=== PATIENT | female | born 1975 | race Caucasian/White ===

== ENCOUNTER 2018-03-09 16:09 | Emergency (ER) | payer BC, MEDICAID, SELFPAY ==
[2018-03-09 16:10] VITALS: BP 152/85; PULSE 56; RESP 16; TEMP 36.3; O2SAT 99; BMI 35.3
--- NOTE | 2018-03-09 16:23 | ED.VISSUMM ---
- ER Visit Summary Date of Service: 03/09/18 Chief Complaint: Left foot injury History of Present Illness: The patient is a 42 F who presents with continued pain to her left foot after stubbing her foot on her sulfa last week. Patient states she has shooting pain up her foot especially with dorsiflexion of her toes. She denies paresthesias. Physical Examination: Vital signs gross unremarkable. Patient sitting upright in bed no acute distress. Lower external examination reveals tenderness to palpation of the distal third and fourth metatarsals. No edema or deformity. Normal sensation and cap refill are noted. No overlying skin changes. She has full range of motion and no tenderness at the ankle. Test Results: Left foot x-rays reveal no acute bony abnormality. Emergency Department Course and Treatment: Test results discussed with patient and family at bedside. Patient's pain has increased over the past couple of days and I question whether her contusion has triggered tendinitis. She is already on Percocet chronically. She will be given a short course of steroids. Treatment Plan: [] Disposition: Discharge Impression: Left foot contusion This note was generated with [employer] dictation software. It may contain incorrect words, spelling, and punctuation that were not noted in review of the chart prior to signing ED Disposition - Plan for ED Patient: Chief Complaint: Lower Extremity Injury Referrals: [facility] Doctor,Out of [NON-STAFF] -
--- NOTE | 2018-03-09 16:25 | RAD_ITS ---
STUDY: X-RAY - LEFT FOOT CLINICAL: Female, 42 years old. Stopped 3rd through 5th toes. Prior surgery of 1st toe as a child. TECHNIQUE: 3 view(s) of the foot. COMPARISON: None. FINDINGS: Osteopenia. Minimal DJD interphalangeal joints. Moderate DJD 1st digit metatarsophalangeal joint with prominent hallux valgus and bunion. A small cerclage wires present within the proximal phalanx of the 1st digit from remote surgery. Old fracture with residual deformity proximal diaphysis of the 4th metatarsal. No visible acute fracture of the toes or metatarsals. Preserved arch. Next line minimal DJD intertarsal and tarsometatarsal articulations. Unremarkable ankle and subtalar joint. Achilles insertion enthesophyte and plantar calculus spur. RAD/Foot min 3 Views IMPRESSION: No radiographic evidence of acute injury. Electronically Signed: Will Verduzco MD at 16:52 EST Tel , Service support ,
--- NOTE | 2018-03-09 17:05 | ED.DEP ---
ED Disposition - Plan for ED Patient: Disposition: Home or Assisted Living Chief Complaint: Lower Extremity Injury Instructions: ED Contusion Foot, What Is Tendinitis of the Foot? Prescriptions: predniSONE tablet 60 mg PO DAILY #15 tablet Referrals: [facility] Doctor,Out of [NON-STAFF] - 1 Week if not improving
[2018-03-09] MEDS: Triamcinolone Acetonide 40 MG/ML Vial IM (17:17)
--- OUTSIDE RECORDS SUMMARY | 2018-05-12 04:34 | XMS RPT_ITS ---
:1975 Author Organization [place] Support Name Relationship Address Phone DOLLJENNIFER RUSSELL Unavailable [address] + [place] [address] TENZIN MCKAY Unavailable [address] + [place] [address] TENZIN MCKAY Unavailable Unavailable + TENZIN MCKAY Unavailable Unavailable + Tenzin Mckay Unavailable Unavailable + [facility] Unavailable Unavailable + TENZIN MCKAY Unavailable Unavailable + TENZIN MCKAY Unavailable Unavailable + TENZIN MCKAY Unavailable Unavailable + TENZIN MCKAY Unavailable Unavailable + TENZIN MCKAY Unavailable [address] + [place] [address] TENZIN MCKAY Unavailable [address] + [place] [address] TENZIN MCKAY Unavailable Unavailable + TENZIN MCKAY Unavailable Unavailable + TENZIN MCKAY Unavailable [address] + [place] [address] TENZIN MCKAY Unavailable Unavailable + TENZIN MCKAY Unavailable Unavailable + TENZIN MCKAY Unavailable [address] + [place] [address] TENZIN MCKAY Unavailable Unavailable + NELY, TENZIN Unavailable Unavailable + NELY, TENZIN Unavailable [address] + [place] [address] NELY, TENZIN Unavailable [address] + [place] [address] NELY, TENZIN Unavailable [address] + [place] [address] NELY, TEZNIN Unavailable [address] + [place] [address] NELY, TENZIN Unavailable Unavailable + NELY, TENZIN Unavailable Unavailable + NELY, TENZIN Unavailable Unavailable + NELY, TENZIN Unavailable Unavailable + NELY, TENZIN Unavailable Unavailable + NELY, TENZIN Unavailable Unavailable + NELY, TENZIN Unavailable [address] + [place] [address] NELY, TENZIN Unavailable Unavailable + NELY, TENZIN Unavailable [address] + [place] [address] NELY, TENZIN Unavailable Unavailable + NELY, TENZIN Unavailable Unavailable + Care Team Providers Name Role Phone Abbas, Mujjahid Attending Unavailable Unknown, Provider Attending Unavailable Abbas, Mujjahid Attending Unavailable Abbas, Mujjahid Admitting Unavailable Abbas, Mujjahid Attending Unavailable Abbas, Mujjahid Attending Unavailable Unknown, Provider Attending Unavailable Abbas, Mujjahid Attending Unavailable Abbas, Mujjahid Attending Unavailable Abbas, Mujjahid Attending Unavailable Abbas, Mujjahid Attending Unavailable Don, Dr. Misty Ross Attending Unavailable Abad, Dr. Cristofer Escobar Referring Unavailable Gianluca, Dr. Salma Moody Primary Care Unavailable Abad, Dr. Cristofer Ecsobar Attending Unavailable Gianluca, Dr. Salma Moody Referring Unavailable Gianluca, Dr. Salma Moody Primary Care Unavailable Gianluca, Dr. Salma Moody Attending Unavailable Gianluca, Dr. Salma Moody Primary Care Unavailable Abbas, Dr. Patel Admitting Unavailable Abbas, Dr. Patel Attending Unavailable *SELF, REFERRED Referring Unavailable Gianluca, Dr. Salma Moody Primary Care Unavailable Gianluca, Dr. Salma Moody Primary Care Unavailable Gianluca, Dr. Salma Moody Primary Care Unavailable Pataskala, Dr. Kaylee Cortez Attending Unavailable UNKNOWN, PCP Referring Unavailable Gianluca, Dr. Salma Moody Primary Care Unavailable Sleik, Dr. Misty Ross Admitting Unavailable Sleik, Dr. Misty Ross Attending Unavailable Gianluca, Dr. Salma Moody Referring Unavailable Gianluca, Dr. Salma Moody Primary Care Unavailable Eleni Delarosa Attending Unavailable Eleni Delarosa Referring Unavailable Gianluca, Dr. Salma Moody Primary Care Unavailable Bobby, Ms. Rubi Attending Unavailable ESEQUIEL MENESES (PA) Attending Unavailable ESEQUIEL MENESES (PA) Referring Unavailable PROVIDER, UNKNOWN Attending Unavailable Salma Hough Referring Unavailable Salma Hough Primary Care Unavailable ETTA CONTEH MD Admitting Unavailable ETTA CONTEH MD Attending Unavailable SALMA HOUGH MD Primary Care Unavailable ETTA CONTEH MD Attending Unavailable SALMA HOUGH MD Primary Care Unavailable ETTA CONTEH MD Attending Unavailable SALMA HOUGH MD Primary Care Unavailable Jordyn Asif Attending Unavailable Salma Hough Primary Care Unavailable PROBLEMS PROBLEMS DATE TYPE CONDITION / CODE ATTENDING STATUS SOURCE 01/22/2018 Admitting Varicose veins of Dr. Don Active [place] diagnosis bi low extrem w [facility] complications / Repository I83.893(ICD-10) 01/22/2018 Final diagnosis Varicose veins of Dr. Don Active [place] (discharge) right lower [facility] extremity with pain Repository / I83.811(ICD-10) 12/25/2017 Admitting Torticollis / Unknown Active [facility] Diagnosis M43.6(ICD-10) System Repository 12/25/2017 Admitting Paresthesia of skin Unknown Active [facility] Diagnosis / R20.2(ICD-10) System Repository 12/25/2017 Admitting Type 2 diabetes Unknown Active [facility] Diagnosis mellitus without System complications / Repository E11.9(ICD-10) 12/25/2017 Admitting Bariatric surgery Unknown Active [facility] Diagnosis status / System Z98.84(ICD-10) Repository 12/25/2017 Admitting Unspecified Unknown [facility] Diagnosis osteoarthritis, System unspecified site / Repository M19.90(ICD-10) 12/25/2017 Admitting Acquired absence of Unknown Active [facility] Diagnosis other specified System parts of digestive Repository tract / Z90.49(ICD-10) 12/25/2017 Admitting Personal history of Unknown Active [facility] Diagnosis nicotine dependence System / Z87.891(ICD-10) Repository 12/25/2017 Admitting Pain in right arm / Unknown Active [facility] Diagnosis M79.601(ICD-10) System Repository 12/10/[address] Abad Active [place] diagnosis varicose veins of [facility] unspecified lower Repository extremity / I83.90(ICD-10) 11/18/2017 Admitting Unspecified lump in GianlucaDr. rufina Active [place] diagnosis unspecified breast [facility] / N63.0(ICD-10) Repository 11/18/2017 [facility] [place] unspecified [facility] / N63.0(ICD-10) Repository 09/16/2017 Active Pain, unspecified / NA Active [place] R52(ICD-10) Clinic Other [place] Repository 08/14/2017 Final diagnosis Bariatric surgery Dr. Geraldo Active [place] (discharge) status / [facility] Z98.84(ICD-10) Repository 08/14/2017 Final diagnosis Gastro-esophageal Dr. Geraldo Active [place] (discharge) reflux disease [facility] without esophagitis Repository / K21.9(ICD-10) 05/08/2017 Final diagnosis Encounter for other Dr. Beba Active [place] (discharge) preprocedural [facility] examination / Repository Z01.818(ICD-10) 05/08/2017 Final diagnosis Type [address] Don Active [place] (discharge) mellitus with [facility] hyperglycemia / Repository E11.65(ICD-10) PROCEDURES PROCEDURES No Procedure Records FoundRESULTS RESULTS EMERGENCY DEPARTMENT Observed: 03/09/2018 Status: F Source: [place] SUMMARY 10:[address] [facility] REPOSITORY [facility] Medical Records Department [address] [place] [address] Emergency Department Summary 03/09/18 1623 MR#: [id number] Acct: [id number] Name: LEISA MCKAY Rep #: [id number] : 1975 42 From: Jordyn sAif MD PCP: Salma Hough MD Status: DEP ER - ER Visit Summary Date of Service: 03/09/18 Chief Complaint: Left foot injury History of Present Illness: The patient is a 42 F who presents with continued pain to her left foot after stubbing her foot on her sulfa last week. Patient states she has shooting pain up her foot especially with dorsiflexion of her toes. She denies paresthesias. Physical Examination: Vital signs gross unremarkable. Patient sitting upright in bed no acute distress. Lower external examination reveals tenderness to palpation of the distal third and fourth metatarsals. No edema or deformity. Normal sensation and cap refill are noted. No overlying skin changes. She has full range of motion and no tenderness at the ankle. Test Results: Left foot x-rays reveal no acute bony abnormality. Emergency Department Course and Treatment: Test results discussed with patient and family at bedside. Patient's pain has increased over the past couple of days and I question whether her contusion has triggered tendinitis. She is already on Percocet chronically. She will be given a short course of steroids. Treatment Plan: [] Disposition: Discharge Impression: Left foot contusion This note was generated with [employer] dictation software. It may contain incorrect words, spelling, and punctuation that were not noted in review of the chart prior to signing ED Disposition - Plan for ED Patient: Chief Complaint: Lower Extremity Injury Referrals: [facility] Doctor,Out of [NON-STAFF] - What to do if you have Problems For any increased pain, shortness of breath, bleeding, nausea or vomiting, chest pain, or any unexpected problems, contact your Primary Care Provider. Call [facility] ([phone]) or report to the closest Emergency Room. Call 911 if necessary. 03/09/18 3842 <Electronically signed by Jordyn Asif MD> Date Jordyn Asif MD Cosigner Signature (If Indicated): Date CC: Salma Hough MD DISCHARGE INSTRUCTION Observed: 03/09/2018 Status: F Source: [place] 5:[address] [facility] REPOSITORY [facility] Medical Records Department [address] [facility] [place] [address] Discharge Instruction 03/09/181704 MR#: [id number] Acct: [id number] Name: LEISA MCKAY Rep #: [id number] : 1975 42 From: Jordyn Asif MD PCP: Salma Hough MD Status: REG ER ED Disposition - Plan for ED Patient: Disposition: Home or Assisted Living Chief Complaint: Lower Extremity Injury Instructions: ED Contusion Foot, What Is Tendinitis of the Foot? Prescriptions: predniSONE tablet 60 mg PO DAILY #15 tablet Referrals: [facility] Doctor,Out of [NON-STAFF] - 1 Week if not improving What to do if you have Problems For any increased pain, shortness of breath, bleeding, nausea or vomiting, chest pain, or any unexpected problems, contact your Primary Care Provider. Call [facility] ([phone]) or report to the closest Emergency Room. Call 911 if necessary. 03/09/181704 <Electronically signed by Jordyn Asif MD> Date Jordyn Asif MD Cosigner Signature (If Indicated): Date CC: Salma Hough MD FOOT MIN 3 VIEWS Observed: 03/09/2018 Status: F Source: [place] 4:[address] [facility] REPOSITORY [facility] Imaging Services [address] [place] [address] Foot min 3 Views MR#: [id number] Acct: [id number] Name: LEIAS MCKAY Rep #: [id number] : 1975 F 42 From: Will Verduzco MD PCP: Salma Hough MD Status: REG ER Study: Foot min 3 Views Date of Exam: 03/09/18 Exam# [id number] Ordering Dr: Jordyn Asif MD STUDY: X-RAY - LEFT FOOT CLINICAL: Female, 42 years old. Stopped 3rd through 5th toes. Prior surgery of 1st toe as a child. TECHNIQUE: 3 view(s) of the foot. COMPARISON: None. FINDINGS: Osteopenia. Minimal DJD interphalangeal joints. Moderate DJD 1st digit metatarsophalangeal joint with prominent hallux valgus and bunion. A small cerclage wires present within the proximal phalanx of the 1st digit from remote surgery. Old fracture with residual deformity proximal diaphysis of the 4th metatarsal. No visible acute fracture of the toes or metatarsals. Preserved arch. Next line minimal DJD intertarsal and tarsometatarsal articulations. Unremarkable ankle and subtalar joint. Achilles insertion enthesophyte and plantar calculus spur. RAD/Foot min 3 Views IMPRESSION: No radiographic evidence of acute injury. Electronically Signed: Will Verduzco MD at 16:52 EST Tel , Service support , CC: Jordyn Asif MD; Salma Hough MD Baggage Inspector: Signed VASC LAB VENOUS Observed: 01/22/2018 Status: F Source: [facility]SUFFICIENCY/REFLUX ULT 1:28 PM [facility], [address] [place] [address], [address], [place] [address] and Vascular Lab Report Venous Insufficiency/Reflux Ultrasound Patient Name: LEISA MCKAY Reading Physician: [id number] Pamella Brown MD Study Date: 01/22/2018 Referring [id number] Cristofer Melgoza Physician: MRN/PID: [id number] PCP: Accession/Order#: [id number] CC Report to: Date of : 1975 Technologist: Pat Velasquez RVSilverio Gender: F Technologist 2: Admission Status: Outpatient Location Performed: [facility] Diagnosis/ICD: I83.811-Varicose veins of right lower extremity with pain Procedure/CPT: 40089 Venous reflux study [id number] [id number] CONCLUSIONS: Right Lower Venous Insufficiency: Right leg demonstrates no evidence of deep vein thombosis or deep or superficial venous insufficiency. The right GSV was not visualized in the mid and distal thigh. Anterior thigh varicosity noted however no reflux noted in the anterior branch. Imaging & Doppler Findings: Right Compress Thrombus SFJ Yes None Prox Thigh GSV Yes None Prox Calf GSV Yes None Mid Calf GSV Yes None Dist Calf GSV Yes None SSV Prox Yes None SSV Mid Yes None SSV Distal Yes None Right Compressible Thrombus CFV Yes None PFV Yes None FV Proximal Yes None FV Mid Yes None FV Distal Yes None Popliteal Yes None Peroneal Yes None PTV Yes None [id number] Pamella Brown MD Final OFFICE VISIT (VASCULAR Observed: 12/10/2017 Status: UNK Source: [facility]) 11:05 AM HOSPITALS REPOSITORY Chief Complaint The patient presents to the office today for an initial evaluation. data input clerk; varicose veins; She has a vein in her upper right thigh. Patient states that its painful when she walks. History of Present Illness This patient presents today as a new consult for evaluation of painful varicose vein right lower extremity. She is 42 years old. She had bariatric surgery and has lost about 80 pounds. She is a diabetic but that is improving. 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 Active Problems Abdominal pain (789.00) (R10.9) Acid reflux (530.81) (K21.9) Acquired deviated nasal septum (470) (J34.2) Acute bronchitis (466.0) (J20.9) Acute postoperative pain of abdomen (338.18,789.00) (G89.18,R10.9) Acute UTI (599.0) (N39.0) Anxiety (300.00) (F41.9) Bariatric surgery status (V45.86) (Z98.84) Breast lump (611.72) (N63.0) Carpal tunnel syndrome (354.0) (G56.00) Common migraine without aura (346.10) (G43.009) Diabetes mellitus type 2, uncontrolled (250.02) (E11.65) Epidermal inclusion cyst (706.2) (L72.0) Fatigue (780.79) (R53.83) GERD without esophagitis (530.81) (K21.9) H. pylori infection (041.86) (A04.8) Headache (784.0) (R51) Incisional hernia (553.21) (K43.2) Status post robotic assisted, laparoscopic repair of this incarcerated incisional hernia on 11/16/2015 at [facility]; satisfactory healing and postoperative course Supraumbilical, symptomatic, as described Iron deficiency anemia (280.9) (D50.9) Joint pain, knee (719.46) (M25.569) Knee osteoarthritis (715.36) (M17.10) Morbid obesity (278.01) (E66.01) Obstructive sleep apnea of adult (327.23) (G47.33) Pilonidal cyst (685.1) (L05.91) Postop check (V67.00) (Z09) Post-operative nausea and vomiting (787.01) (R11.2,Z98.890) Pre-op testing (V72.84) (Z01.818) Rapid weight loss (783.21) (R63.4) S/P laparoscopic sleeve gastrectomy (V45.86) (Z98.84) Sinusitis (473.9) (J32.9) Sleep apnea (780.57) (G47.30) Sprain of right knee (844.9) (S83.91XA) Traumatic arthritis of knee (716.16) (M12.569) Vaginitis (616.10) (N76.0) Varicose veins (454.9) (I83.90) Ventral hernia (553.20) (K43.9) Vitamin D insufficiency (268.9) (E55.9) Weight gain (783.1) (R63.5) Past Medical History History of gestational diabetes (V12.21) (Z86.32) History of morbid obesity (V13.89) (Z87.898) Personal history of arthritis (V13.4) (Z87.39) Surgical History History of Section x 2 History of Eye Surgery Results Strabismus History of Foot Repair age 12 History of Gastrectomy Sleeve Laparoscopic History of Knee Surgery right x 6 History of Nose Surgery History of Surgery fb face Family History Family history of Acute Myocardial Infarction (V17.3) Family history of Benign Essential Hypertension Family history of Type 2 Diabetes Mellitus Social History Former smoker (V15.82) (Z87.891) Quit 2005 (1 1/8cofk4xmezg) Living Situation: Supportive and safe Denied: History of Never smoker No alcohol use No drug use Non-smoker (V49.89) (Z78.9) Occupation Works in [employer] at [employer] for the past year usually works at 32-34 hours per week with a 9 hour shifts. Prior to [employer] and had worked at a [employer] for 6 months. 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 She worked for approximate 2 years for [employer] prior to having her children. 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 Denies any other workers consultation injuries or exposures at work graduated from high school in 1995. Patient works at [employer] in [place] [employer] and also [employer]. She denies smoking or alcohol use. She lives in [place]. She is 2 para 2 abortus 0. She has 3 children. She had twins. Allergies No Known Allergies Recorded By: Salma Hough; 02/28/2012 1:54:04 PM Current Meds Omeprazole 40 MG Oral Capsule Delayed Release; take 1 capsule by mouth once daily; Therapy: 84Lkz5034 to (Evaluate:25Dec2017) Requested for: 26Sep2017; Last Rx:26Sep2017 Ordered Rx By: Amanda Chow; Dispense: 30 Days ; #:30 Capsule; Refill: 2;For: Acid reflux, Morbid obesity; KIELY = N; Verified Transmission to [address]; Last Updated By: Maite Hernandez; 09/26/2017 9:57:07 AM Vitamin B-1 50 MG Oral Tablet; take 1 tablet 1x a day for 4 weeks; Therapy: 19Jun2017 to (Last Rx:19Jun2017) Requested for: 19Jun2017 Ordered Rx By: Amanda Chow; Dispense: 0 Days ; #:30 Tablet; Refill: 0;For: Bariatric surgery status; KEILY = N; Verified Transmission to [address] Oxycodone-Acetaminophen 5-325 MG/5ML SOLN; Therapy: 04Apr2017 to Recorded Dispense: 0 Days ; #: Sufficient ML; Refill: 0;For: Joint pain, knee, Knee osteoarthritis; KEILY = N; Record; Last Updated By: Dana Lugo; 04/04/2017 10:06:09 AM IMVU Mini w/Device Kit; USE DIRECTED TO TEST TWICE A DAY; Therapy: 15Dec2016 to Recorded Rx By: GIANLUCA; Dispense: 30 Days ; #:1 KIT; Refill: 0; KEILY = N; Record; Last Updated By: Salma Hough; 03/14/2017 10:47:06 AM Vitals Vital Signs Recorded: 10Dec2017 10:39AM Heart Rate63 Gcwyoucf641, LUE, Sitting Jdoheitfl69, LUE, Sitting Blood Pressure Cuff SizeLarge Height5 ft 3.5 in Nqrzlr477 lb BMI Ufbzcjnotm41.79 BSA Calculated1.99 O2 Ibmosolngt88 Physical Exam This patient is alert and oriented 3 no acute distress she is resting comfortably her head is normocephalic pupils are equal and reactive to light and accommodation neck is soft and supple without palpa ble lymph nodes heart is regular rate and rhythm lungs are clear abdomen is soft with positive bowel sounds is no pain on palpation. Upper and lower extremities have adequate range of motion with palpab le brachial radial femoral popliteal and pedal pulses. She does have a varicosity involving her right lower extremity starting from the proximal thigh area near the groin and going anterolaterally acros s the lateral part of the knee. Skin turgor is adequate psychologically she seems to be acting appropriately. Results/Data There are no new results to discuss Diagnoses/Problems Varicose veins (454.9) (I83.90) Orders Varicose veins Patient Treatment Education; Status:Complete - Retrospective Authorization; Done: 10Dec2017 Last Updated By:Jo Ann Reinoso; 12/10/2017 10:43:02 AM;Ordered; For:Varicose veins; Ordered By:Cristofer Melgoza; Provider Impressions This patient presents today as a new consult for evaluation of painful right lower extremity varicose vein. She states that the vein is consistently painful. She quit smoking in 2005. She also had baria tric surgery and has lost 80 pounds. She currently weighs 211 pounds. On physical exam she has palpable peripheral pulses. She has a varicosity running along the anterior lateral aspect of her right thi gh she has very mild varicosities of the left lower extremity. At this time I would like to order a venous duplex scan with reflux study and also she needs to wear her compression stockings that we are prescribing for her on a consistent basis. Also she needs to start exercising. We will see her back in 3 months. Thank you very much for allowing me take part in the care of your patient sincerely yours Dr. Cristofer Melgoza. Counseling The patient was counseled regarding instructions for management, risk factor reductions, prognosis, patient and family education, risks and benefits of treatment options and importance of compliance with treatment. End of Encounter Meds Omeprazole 40 MG Oral Capsule Delayed Release; take 1 capsule by mouth once daily; Therapy: 19Jun2017 to (Evaluate:25Dec2017) Requested for: 26Sep2017; Last Rx:26Sep2017 Ordered IMVU Mini w/Device Kit; USE DIRECTED TO TEST TWICE A DAY; Therapy: 15Dec2016 to Recorded Oxycodone-Acetaminophen 5-325 MG/5ML SOLN; Therapy: 32Alq5756 to Recorded Vitamin B-1 50 MG Oral Tablet; take 1 tablet 1x a day for 4 weeks; Therapy: 19Jun2017 to (Last Rx:19Jun2017) Requested for: 19Jun2017 Ordered Signatures Electronically signed by : Cristofer Melgoza DO; Dec 10 2017 11:05AM EST (Author) Reviewed by : Salma Hough MD; Dec 10 2017 5:31PM EST DIGITAL DIAG MAMM Observed: 11/18/2017 Status: F Source: [facility] WITH [facility] 11:02 [facility] REPOSITORY Patient Name: LEISA MCKAY STUDY: DIGITAL DIAG MAMM BILAT WITH MAR[facility]; BREAST ULTRASOUND; 11/18/2017 11:02 am ACCESSION NUMBER(S): [id number]; [id number] ORDERING CLINICIAN: SALMA HOUGH INDICATION: Signs/Symptoms: bilat breast lumps. COMPARISON: None. FINDINGS: MAMMOGRAPHY: 2D and tomosynthesis images were reviewed at 1 mm slice thickness. There are areas of scattered fibroglandular tissue. Metallic BBs were placed bilaterally in the lateral central aspect of both breasts. There is no underlying focal abnormality seen. No suspicious masses or calcifications are identified. ULTRASOUND: Targeted ultrasound of both breasts was performed. There is no focal abnormality seen in the area of palpable concern. IMPRESSION: No mammographic evidence of malignancy. No ultrasonic evidence of malignancy in the area of palpable concern bilaterally. Clinical follow-up is recommended. BI-RADS CATEGORY: Category: 1 - Negative. Recommendation: 1 Year Screening. For any future breast imaging appointments, please call [phone] ([phone]). Patient letter sent SNORMS Electronically signed by: DIANE GRAVES MD BREAST ULTRASOUND Observed: 11/18/2017 Status: F Source: [place] 11:02 [facility] REPOSITORY Patient Name: LEISA MCKAY STUDY: DIGITAL DIAG MAMM BILAT WITH [facility]; BREAST ULTRASOUND; 11/18/2017 11:02 am ACCESSION NUMBER(S): [id number]; [id number] ORDERING CLINICIAN: SALMA HOUGH INDICATION: Signs/Symptoms: bilat breast lumps. COMPARISON: None. FINDINGS: MAMMOGRAPHY: 2D and tomosynthesis images were reviewed at 1 mm slice thickness. There are areas of scattered fibroglandular tissue. Metallic BBs were placed bilaterally in the lateral central aspect of both breasts. There is no underlying focal abnormality seen. No suspicious masses or calcifications are identified. ULTRASOUND: Targeted ultrasound of both breasts was performed. There is no focal abnormality seen in the area of palpable concern. IMPRESSION: No mammographic evidence of malignancy. No ultrasonic evidence of malignancy in the area of palpable concern bilaterally. Clinical follow-up is recommended. BI-RADS CATEGORY: Category: 1 - Negative. Recommendation: 1 Year Screening. For any future breast imaging appointments, please call [phone] ([phone]). Patient letter sent SNORMS Electronically signed by: DIANE GRAVES MD OFFICE VISIT (FAMILY Observed: 11/17/2017 Status: UNK Source: [facility]) 11:13 AM HOSPITALS REPOSITORY Chief Complaint follow up anxiety and fatigue - discuss gastro medication possible lumps on breast - did not get bw done yet. History of Present Illness here for fu was to fu for anxiety meds but when called and checked on meds w bariatric surgeon they said it was to extended release for her sleeve an cannot take' has been off after 3 days and has been pt has been managing the stress w relaxation techniques has been watching sugar and has been doing ok w that has chronic pain and on percocet for knees per dr ugalde had a shot 2 weeks ago and has another scheduled in the other knee getting gel injections has struggled w pain increase bc more activity' ran for the first time in forever not far but now still knee pain few lumos breast needed check and no mammo in a while1 1 Amended By: Salma Hough; Nov 17 2017 11:11 AM EST Review of Systems Constitutional: no chills, no fever and no night sweats. Eyes: no blurred vision and no eyesight problems. ENT: no hearing loss, no nasal congestion, no nasal discharge, no hoarseness and no sore throat. Neck: no mass(es) and no swelling. Cardiovascular: no chest pain, no intermittent leg claudication, no lower extremity edema, no palpitations and no syncope. Respiratory: no cough, no shortness of breath during exertion, no shortness of breath at rest and no wheezing. Gastrointestinal: no abdominal pain, no diarrhea, no nausea and no vomiting. Integumentary: breast lump1 , but no new skin lesions and no rashes. 1 Amended By: Salma Hough; Nov 17 2017 11:12 AM EST Active Problems Abdominal pain (789.00) (R10.9) Acid reflux (530.81) (K21.9) Acquired deviated nasal septum (470) (J34.2) Acute bronchitis (466.0) (J20.9) Acute postoperative pain of abdomen (338.18,789.00) (G89.18,R10.9) Acute UTI (599.0) (N39.0) Anxiety (300.00) (F41.9) Bariatric surgery status (V45.86) (Z98.84) Carpal tunnel syndrome (354.0) (G56.00) Common migraine without aura (346.10) (G43.009) Diabetes mellitus type 2, uncontrolled (250.02) (E11.65) Epidermal inclusion cyst (706.2) (L72.0) Fatigue (780.79) (R53.83) GERD without esophagitis (530.81) (K21.9) H. pylori infection (041.86) (A04.8) Headache (784.0) (R51) Incisional hernia (553.21) (K43.2) Status post robotic assisted, laparoscopic repair of this incarcerated incisional hernia on 11/16/2015 at [facility]; satisfactory healing and postoperative course Supraumbilical, symptomatic, as described Iron deficiency anemia (280.9) (D50.9) Joint pain, knee (719.46) (M25.569) Knee osteoarthritis (715.36) (M17.10) Morbid obesity (278.01) (E66.01) Obstructive sleep apnea of adult (327.23) (G47.33) Pilonidal cyst (685.1) (L05.91) Postop check (V67.00) (Z09) Post-operative nausea and vomiting (787.01) (R11.2,Z98.890) Pre-op testing (V72.84) (Z01.818) Rapid weight loss (783.21) (R63.4) S/P laparoscopic sleeve gastrectomy (V45.86) (Z98.84) Sinusitis (473.9) (J32.9) Sleep apnea (780.57) (G47.30) Sprain of right knee (844.9) (S83.91XA) Traumatic arthritis of knee (716.16) (M12.569) Vaginitis (616.10) (N76.0) Varicose veins (454.9) (I83.90) Ventral hernia (553.20) (K43.9) Vitamin D insufficiency (268.9) (E55.9) Weight gain (783.1) (R63.5) Past Medical History History of gestational diabetes (V12.21) (Z86.32) History of morbid obesity (V13.89) (Z87.898) Personal history of arthritis (V13.4) (Z87.39) Surgical History History of Section x 2 History of Eye Surgery Results Strabismus History of Foot Repair age 12 History of Gastrectomy Sleeve Laparoscopic History of Knee Surgery right x 6 History of Nose Surgery History of Surgery fb face Family History Family history of Acute Myocardial Infarction (V17.3) Family history of Benign Essential Hypertension Family history of Type 2 Diabetes Mellitus Social History Living Situation: Supportive and safe Never smoker No alcohol use No drug use Non-smoker (V49.89) (Z78.9) Occupation Works in the [employer] at [employer] for the past year usually works at 32-34 hours per week with a 9 hour shifts. Prior to [employer] and had worked at a [employer] for 6 months. 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 She worked for approximate 2 years for [employer] prior to having her children. 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 Denies any other workers consultation injuries or exposures at work graduated from high school in 1995. 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 She denies smoking or alcohol use. She lives in [place]. She is 2 para 2 abortus 0. She has 3 children. She had twins. Allergies No Known Allergies Recorded By: Salma Hough; 02/28/2012 1:54:04 PM Current Meds Omeprazole 40 MG Oral Capsule Delayed Release; take 1 capsule by mouth once daily; Therapy: 19Jun2017 to (Evaluate:25Dec2017) Requested for: 41Iep6871; Last Rx:[id number] Ordered Rx By: Amanda Chow; Dispense: 30 Days ; #:30 Capsule; Refill: 2;For: Acid reflux, Morbid obesity; KEILY = N; Verified Transmission to [address] Last Updated By: [employer]; 09/26/2017 9:57:07 AM DULoxetine HCl - 30 MG Oral Capsule Delayed Release Particles; take 1 capsule by mouth once daily; Therapy: 66Zlk4267 to (Last Rx:[id number]) Requested for: 05Noy9213 Ordered Rx By: Salma Hough; Dispense: 0 Days ; #:30 Capsule Delayed Release Particles; Refill: 0;For: Anxiety; KEILY = N; Verified Transmission to [address] Last Updated By: [employer]; 10/08/2017 3:10:42 PM Vitamin B-1 50 MG Oral Tablet; take 1 tablet 1x a day for 4 weeks; Therapy: 65Vaa5188 to (Last Rx:19Jun2017) Requested for: 05Kdd9851 Ordered Rx By: Amanda Chow; Dispense: 0 Days ; #:30 Tablet; Refill: 0;For: Bariatric surgery status; KEILY = N; Verified Transmission to [address] Oxycodone-Acetaminophen 5-325 MG/5ML SOLN; Therapy: 25Aun9538 to Recorded Dispense: 0 Days ; #: Sufficient ML; Refill: 0;For: Joint pain, knee, Knee osteoarthritis; KEILY = N; Record; Last Updated By: Dana Lugo; 04/04/2017 10:06:09 AM Ondansetron 4 MG Oral Tablet Disintegrating; TAKE 4 MG Every 6 hours PRN; Therapy: 19Vom6390 to (Last Rx:43Kmi0425) Requested for: 26Ffo7913 Ordered Rx By: Amanda Chow; Dispense: 0 Days ; #:30 Tablet Disintegrating; Refill: 1;For: Post-operative nausea and vomiting; KEILY = N; Verified Transmission to [address] MetroNIDAZOLE 0.75 % Vaginal Gel; INSERT 1 APPLICATORFUL INTRAVAGINALLY AT BEDTIME NIGHTLY. FOR 7 DAYS; Therapy: 29Soo3759 to (Last Rx:[id number]) Requested for: 09Zpa7106 Ordered Rx By: Salma Hough; Dispense: 0 Days ; #:1 X 70 GM Tube; Refill: 0;For: Vaginitis; KEILY = N; Verified Transmission to [address]; Last Updated By: Maite Hernandez; 10/13/2017 9:25:26 PM OneTouch Ultra Mini w/Device Kit; USE DIRECTED TO TEST TWICE A DAY; Therapy: 15Dec2016 to Recorded Rx By: GIANLUCA; Dispense: 30 Days ; #:1 KIT; Refill: 0; KEILY = N; Record; Last Updated By: Salma Hough; 03/14/2017 10:47:06 AM Vitals Vital Signs Recorded: 17Nov2017 10:31AM Erweqxixmfh25.1 F Heart Rate78 Cbvfbjuq205 Fwlhyyjfb95 Height5 ft 3.5 in Nfvftl512 lb BMI Sechwzfyny96.66 BSA Calculated2.01 Physical Exam Constitutional: Alert and in no acute distress. Well developed, well nourished. Eyes: Normal external exam. Pupils were equal in size, round, reactive to light (PERRL) with normal accommodation and extraocular movements intact (EOMI). Ears, Nose, Mouth, and Throat: External inspection of ears and nose: Normal. Hearing: Normal. Nasal mucosa, septum, and turbinates: Normal. Lips, teeth, and gums: Normal. Oropharynx: Normal. Neck: No neck mass was observed. Supple. Thyroid not enlarged and there were no palpable thyroid nodules. Cardiovascular: Heart rate and rhythm were normal, normal S1 and S2, no gallops, no murmurs and no pericardial rub. Pedal pulses: Normal. No peripheral edema. Pulmonary: No respiratory distress. Clear bilateral breath sounds. Chest:1 Breasts: Abnormal. 1 . B nodularity1 . Abdomen: Soft nontender; no abdominal mass palpated. No organomegaly. Musculoskeletal: No joint swelling seen, normal movements of all extremities. Range of motion: Normal. Muscle strength/tone: Normal. Skin: Normal skin color and pigmentation, normal skin turgor, and no rash. Psychiatric: Judgment and insight: Intact. Mood and affect: Normal. Lymphatic: No cervical lymphadenopathy. 1 Amended By: Salma Hough; Nov 17 2017 11:12 AM EST Diagnoses/Problems Anxiety (300.00) (F41.9) Bariatric surgery status (V45.86) (Z98.84) Joint pain, knee (719.46) (M25.569) Diabetes mellitus type 2, uncontrolled (250.02) (E11.65) Breast lump (611.72) (N63.0)1 1 Amended By: Salma Hough; Nov 17 2017 11:12 AM EST Orders Anxiety Stop: DULoxetine HCl - 30 MG Oral Capsule Delayed Release Particles Rx By: Salma Hough; Dispense: 0 Days ; #:30 Capsule Delayed Release Particles; Refill: 0;For: Anxiety; KEILY = N; Sent To:[address] [facility] [address] Breast lump Mamm - Digital Diagnostic Mammogram Bilateral w/ Tomosynthesis; Status:Hold For - Scheduling; Requested for: Perform:[facility]; Due:50Njk7333;Ordered; For:Breast lump; Ordered By:Salma Hough Radiologist to Determine Optimal Study : Y What are the patient's signs and symptoms? : b breast lumps1 Mamm - Ultrasound of Breast; Status:Hold For - Scheduling; Requested for: Perform:[facility]; Due:61Qgj5708;Ordered; For:Breast lump; Ordered By:Salma Hough Radiologist to Determine Optimal Study : Y What are the patient's signs and symptoms? : b breast lumps1 Post-operative nausea and vomiting Stop: Ondansetron 4 MG Oral Tablet Disintegrating Rx By: Amanda Chow; Dispense: 0 Days ; #:30 Tablet Disintegrating; Refill: 1;For: Post-operative nausea and vomiting; KEILY = N; Sent To: [facility] Last Updated By: Salma Hough; 11/17/2017 11:07:35 AM1 Vaginitis Stop: MetroNIDAZOLE 0.75 % Vaginal Gel (MetroGel-Vaginal) Rx By: Salma Hough; Dispense: 0 Days ; #:1 X 70 GM Tube; Refill: 0;For: Vaginitis; KEILY = N; Sent To:[address] [facility] [address] 1 Amended By: Salma Hough; Nov 17 2017 11:12 AM EST Provider Impressions call w issues bariatric fu as scheduled getting bw soon fu w pain mngement and ortho sees nutrition w the bariatric clinic and goes to fu meetings going for bw soon End of Encounter Meds Omeprazole 40 MG Oral Capsule Delayed Release; take 1 capsule by mouth once daily; Therapy: 19Jun2017 to (Evaluate:25Dec2017) Requested for: 26Sep2017; Last Rx:[id number] Ordered Gruviuch Hers Mini w/Device Kit; USE DIRECTED TO TEST TWICE A DAY; Therapy: 15Dec2016 to Recorded Oxycodone-Acetaminophen 5-325 MG/5ML SOLN; Therapy: 00Lty9652 to Recorded Vitamin B-1 50 MG Oral Tablet; take 1 tablet 1x a day for 4 weeks; Therapy: 19Jun2017 to (Last Rx:19Jun2017) Requested for: 19Jun2017 Ordered Signatures Electronically signed by : Salma Hough MD; Nov 17 2017 11:13AM EST (Author) OFFICE VISIT (FAMILY Observed: 10/08/2017 Status: UNK Source: [facility]) 3:16 PM HOSPITALS REPOSITORY Chief Complaint follow up gastro surgery. History of Present Illness here for fu had bariatric surgery in june has lost a lot of weight then plateaued had bad heart burn and was given carafate and nexium but was not covered so doing the omeprazole 40 and the omeprazole 20 seems better now and is learning to manage w diet and watching intake started to note mass hair loss ijn August and now very thin type was thin before and had a bald spot at site of scar but now much worse has bad anxiety does not want to sit but moves around then knee hurts having dc vaginal and long menses for 5 yrs last yn care was in to [facility] before they moved 7 yrs ago and has not been back Review of Systems Constitutional: no chills, no fever and no night sweats. Eyes: no blurred vision and no eyesight problems. ENT: no hearing loss, no nasal congestion, no nasal discharge, no hoarseness and no sore throat. Neck: no mass(es) and no swelling. Cardiovascular: no chest pain, no intermittent leg claudication, no lower extremity edema, no palpitations and no syncope. Respiratory: no cough, no shortness of breath during exertion, no shortness of breath at rest and no wheezing. Gastrointestinal: no abdominal pain, no nausea and no vomiting. Musculoskeletal: limb pain, but no arthralgias, no back pain and no myalgias . vein right. Integumentary: no new skin lesions and no rashes. Active Problems Abdominal pain (789.00) (R10.9) Acid reflux (530.81) (K21.9) Acquired deviated nasal septum (470) (J34.2) Acute bronchitis (466.0) (J20.9) Acute postoperative pain of abdomen (338.18,789.00) (G89.18,R10.9) Acute UTI (599.0) (N39.0) Anxiety (300.00) (F41.9) Bariatric surgery status (V45.86) (Z98.84) Carpal tunnel syndrome (354.0) (G56.00) Common migraine without aura (346.10) (G43.009) Diabetes mellitus type 2, uncontrolled (250.02) (E11.65) Epidermal inclusion cyst (706.2) (L72.0) Fatigue (780.79) (R53.83) GERD without esophagitis (530.81) (K21.9) H. pylori infection (041.86) (A04.8) Headache (784.0) (R51) Incisional hernia (553.21) (K43.2) Status post robotic assisted, laparoscopic repair of this incarcerated incisional hernia on 11/16/2015 at [facility]; satisfactory healing and postoperative course Supraumbilical, symptomatic, as described Iron deficiency anemia (280.9) (D50.9) Joint pain, knee (719.46) (M25.569) Knee osteoarthritis (715.36) (M17.10) Morbid obesity (278.01) (E66.01) Obstructive sleep apnea of adult (327.23) (G47.33) Pilonidal cyst (685.1) (L05.91) Postop check (V67.00) (Z09) Post-operative nausea and vomiting (787.01) (R11.2,Z98.890) Pre-op testing (V72.84) (Z01.818) Rapid weight loss (783.21) (R63.4) S/P laparoscopic sleeve gastrectomy (V45.86) (Z98.84) Sinusitis (473.9) (J32.9) Sleep apnea (780.57) (G47.30) Sprain of right knee (844.9) (S83.91XA) Traumatic arthritis of knee (716.16) (M12.569) Ventral hernia (553.20) (K43.9) Vitamin D insufficiency (268.9) (E55.9) Weight gain (783.1) (R63.5) Past Medical History History of gestational diabetes (V12.21) (Z86.32) History of morbid obesity (V13.89) (Z87.898) Personal history of arthritis (V13.4) (Z87.39) Surgical History History of Section x 2 History of Eye Surgery Results Strabismus History of Foot Repair age 12 History of Gastrectomy Sleeve Laparoscopic History of Knee Surgery right x 6 History of Nose Surgery History of Surgery fb face Family History Family history of Acute Myocardial Infarction (V17.3) Family history of Benign Essential Hypertension Family history of Type 2 Diabetes Mellitus Social History Living Situation: Supportive and safe Never smoker No alcohol use No drug use Non-smoker (V49.89) (Z78.9) Occupation Works in the [employer] at [employer] for the past year usually works at 32-34 hours per week with a 9 hour shifts. Prior to [employer] and had worked at a [employer] for 6 months. 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 She worked for approximate 2 years for [employer] prior to having her children. 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 Denies any other workers consultation injuries or exposures at work graduated from high school in 1995. 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 She denies smoking or alcohol use. She lives in [place]. She is 2 para 2 abortus 0. She has 3 children. She had twins. Allergies No Known Allergies Recorded By: Salma Hough; 02/28/2012 1:54:04 PM Current Meds Omeprazole 40 MG Oral Capsule Delayed Release; take 1 capsule by mouth once daily; Therapy: 33Aiv7946 to (Evaluate:25Dec2017) Requested for: 26Sep2017; Last Rx:26Sep2017 Ordered Rx By: Amanda Chow; Dispense: 30 Days ; #:30 Capsule; Refill: 2;For: Acid reflux, Morbid obesity; KEILY = N; Verified Transmission to [address]; Last Updated By: Maite Hernandez; 09/26/2017 9:57:07 AM Lidocaine 5 % External Patch; APPLY 1 PATCH TO THE AFFECTED AREA AND LEAVE IN PLACE FOR 12 HOURS, THEN REMOVE AND LEAVE OFF FOR 12 HOURS; Therapy: 19Jun2017 to (Evaluate:24Jun2017) Requested for: 19Jun2017; Last Rx:19Jun2017 Ordered Rx By: Amanda Chow; Dispense: 5 Days ; #:5 Patch; Refill: 0;For: Acute postoperative pain of abdomen; KEILY = N; Verified Transmission to [address] Vitamin B-1 50 MG Oral Tablet; take 1 tablet 1x a day for 4 weeks; Therapy: 19Jun2017 to (Last Rx:19Jun2017) Requested for: 19Jun2017 Ordered Rx By: Amanda Chow; Dispense: 0 Days ; #:30 Tablet; Refill: 0;For: Bariatric surgery status; KEILY = N; Verified Transmission to [address] Carafate 1 GM/10ML Oral Suspension; TAKE 1 GM 4 times daily 4 TIMES DAILY, BEFORE MEALS AND AT BEDTIME; Therapy: 14Aug2017 to (Evaluate:24Nvt3362) Requested for: 14Aug2017; Last Rx:14Aug2017 Ordered Rx By: Amanda Chow; Dispense: 7 Days ; #:112 ML; Refill: 1;For: Bariatric surgery status, Post-operative nausea and vomiting, S/P laparoscopic sleeve gastrectomy; KEILY = N; Verified Transmission to [address] Dexilant 30 MG Oral Capsule Delayed Release; Take 1 tablet twice daily; Therapy: 14Aug2017 to (Evaluate:09Suq9206) Requested for: 14Aug2017; Last Rx:14Aug2017 Ordered Rx By: Amanda Chow; Dispense: 30 Days ; #:60 Capsule Delayed Release; Refill: 1;For: Bariatric surgery status, Post-operative nausea and vomiting, S/P laparoscopic sleeve gastrectomy; KEILY = N; Verified Transmission to [address] Oxycodone-Acetaminophen 5-325 MG/5ML SOLN; Therapy: 40Aug1142 to Recorded Dispense: 0 Days ; #: Sufficient ML; Refill: 0;For: Joint pain, knee, Knee osteoarthritis; KEILY = N; Record; Last Updated By: Dana Lugo; 04/04/2017 10:06:09 AM Ondansetron 4 MG Oral Tablet Disintegrating; TAKE 4 MG Every 6 hours PRN; Therapy: 28Mik3429 to (Last Rx:19Jun2017) Requested for: 19Jun2017 Ordered Rx By: Amanda Chow; Dispense: 0 Days ; #:30 Tablet Disintegrating; Refill: 1;For: Post-operative nausea and vomiting; KEILY = N; Verified Transmission to [address] Vitamin D (Ergocalciferol) 96430 UNIT Oral Capsule; take 1 capsule by mouth every week; Therapy: 19May2017 to (Evaluate:21Nov2017) Requested for: 19Sep2017; Last Rx:19Sep2017 Ordered Rx By: Amanda Chow; Dispense: 21 Days ; #:5 Capsule; Refill: 2;For: Vitamin D insufficiency; KEILY = N; Verified Transmission to [address]; Last Updated By: Maite Hernandez; 10/08/2017 3:09:29 PM IMVU Mini w/Device Kit; USE DIRECTED TO TEST TWICE A DAY; Therapy: 15Dec2016 to Recorded Rx By: GIANLUCA; Dispense: 30 Days ; #:1 KIT; Refill: 0; KEILY = N; Record; Last Updated By: Salma Hough; 03/14/2017 10:47:06 AM Vitals Vital Signs Recorded: 08Oct2017 02:17PM Eemkzfhtyyg80.4 F Heart Rate81 Zprgabmz774 Qsgnddvlz45 Mbfete282 lb BMI Mqsalacasv06.01 BSA Calculated2.02 Physical Exam Constitutional: Alert and in no acute distress. Well developed, well nourished. Eyes: Normal external exam. Pupils were equal in size, round, reactive to light (PERRL) with normal accommodation and extraocular movements intact (EOMI). Ears, Nose, Mouth, and Throat: External inspection of ears and nose: Normal. Hearing: Normal. Nasal mucosa, septum, and turbinates: Normal. Lips, teeth, and gums: Normal. Oropharynx: Normal. Neck: No neck mass was observed. Supple. Thyroid not enlarged and there were no palpable thyroid nodules. Cardiovascular: Heart rate and rhythm were normal, normal S1 and S2, no gallops, no murmurs and no pericardial rub. Pedal pulses: Normal. No peripheral edema. Pulmonary: No respiratory distress. Clear bilateral breath sounds. Abdomen: Soft nontender; no abdominal mass palpated. No organomegaly. Musculoskeletal: No joint swelling seen, normal movements of all extremities. Range of motion: Normal. Muscle strength/tone: Normal. Skin: Normal skin color and pigmentation, normal skin turgor, and no rash. Psychiatric: Judgment and insight: Intact. Mood and affect: Normal. Lymphatic: No cervical lymphadenopathy. Diagnoses/Problems Anxiety (300.00) (F41.9) Fatigue (780.79) (R53.83) Varicose veins (454.9) (I83.90) Vaginitis (616.10) (N76.0)1 1 Amended By: Salma Hough; Oct 08 2017 3:16 PM EST Orders Acute postoperative pain of abdomen Stop: Lidocaine 5 % External Patch Rx By: Amanda Chow; Dispense: 5 Days ; #:5 Patch; Refill: 0;For: Acute postoperative pain of abdomen; KEILY = N; Sent To: [facility] Last Updated By: Salma Hough; 10/08/2017 3:09:29 PM Anxiety Start: DULoxetine HCl - 30 MG Oral Capsule Delayed Release Particles; take 1 capsule by mouth once daily Rx By: Salma Hough; Dispense: 0 Days ; #:30 Capsule Delayed Release Particles; Refill: 0;For: Anxiety; KEILY = N; Verified Transmission to [facility]; Last Updated By: Maite Hernandez; 10/08/2017 3:10:42 PM1 Bariatric surgery status, Post-operative nausea and vomiting, S/P laparoscopic sleeve gastrectomy Stop: Dexilant 30 MG Oral Capsule Delayed Release Rx By: Amanda Chow; Dispense: 30 Days ; #:60 Capsule Delayed Release; Refill: 1;For: Bariatric surgery status, Post-operative nausea and vomiting, S/P laparoscopic sleeve gastrectomy; KEILY = N; Sent To: [facility] [place] [address]; Last Updated By: Salma Hough; 10/08/2017 3:09:30 PM Fatigue TSH - Thyroid Stimulating Hormone, Serum; Source:Blood (D); Status:Active; Requested for:08Oct2017; Perform:Lab Services - Lab To Draw (Blood Test); Due:06Jan2018;Ordered; For:Fatigue; Ordered By:Salma Hough Varicose veins Vascular Surgery Referral Evaluation and Treatment Evaluate AND Treat Status: Hold For - Scheduling Requested for: 08Oct2017 Ordered;For: Varicose veins; Ordered By: Salma Hough Performed: Due: 06Jan2018 Vitamin D insufficiency Stop: Vitamin D (Ergocalciferol) 80478 UNIT Oral Capsule Rx By: Amanda Chow; Dispense: 21 Days ; #:5 Capsule; Refill: 2;For: Vitamin D insufficiency; KEILY = N; Sent To: [facility]; Last Updated By: Salma Hough; 10/08/2017 3:09:29 PM 1 Amended By: Salma Hough; Oct 08 2017 3:16 PM EST Provider Impressions call w issues see orders above consider derm referral fi 4 weeks re meds 1 vascular referral for right leg pain and varicosity1 BD probe will treat when done2 1 Amended By: Salma Hough; Oct 08 2017 3:12 PM EST 2 Amended By: Salma Hough; Oct 08 2017 3:16 PM EST End of Encounter Meds DULoxetine HCl - 30 MG Oral Capsule Delayed Release Particles; take 1 capsule by mouth once daily; Therapy: 61Xgy1138 to (Last Rx:08Oct2017) Ordered Omeprazole 40 MG Oral Capsule Delayed Release; take 1 capsule by mouth once daily; Therapy: 19Jun2017 to (Evaluate:25Dec2017) Requested for: 73Xdp3324; Last Rx:09Kkg9912 Ordered Ondansetron 4 MG Oral Tablet Disintegrating; TAKE 4 MG Every 6 hours PRN; Therapy: 74Vic8053 to (Last Rx:19Jun2017) Requested for: 19Jun2017 Ordered SyndiantTouch Ultra Mini w/Device Kit; USE DIRECTED TO TEST TWICE A DAY; Therapy: 97Bpa7206 to Recorded Oxycodone-Acetaminophen 5-325 MG/5ML SOLN; Therapy: 42Ple1085 to Recorded Vitamin B-1 50 MG Oral Tablet; take 1 tablet 1x a day for 4 weeks; Therapy: 80Rlh0208 to (Last Rx:19Jun2017) Requested for: 10Qop0406 Ordered Signatures Electronically signed by : Salma Hough MD; Oct 08 2017 3:12PM EST (Author) BARIATRIC SURGERY - Observed: 09/25/2017 Status: UNK Source: [facility] FOLLOW-UP 6:58 AM HOSPITALS REPOSITORY No report was sent PROGRESS Observed: 09/18/2017 Status: COMPLETED Source: [place] 2:17 PM [facility] [place] REPOSITORY HNO ID: [id number] Author: Esequiel Meneses ([place]) Service: (none) Author Type: Physician Social Service Manager Type: Progress Notes Filed: 09/18/2017 3:10 PM Note Text: CONSULT ORTHOPAEDIC: KNEE PRIMARY CARE PHYSICIAN: Salma Hough MD REFERRING PROVIDER: SELF PROCEDURE- JOINT INJECTION Joint Sites: knee She has had previous injections in the past. On exam, the joint is cool to touch without sign of infection. Flexion is limited and is uncomfortable. Crepitation is present with ROM. The proposed risks versus benefits of local anesthetic and steroid injection were discussed in detail. The patient verbalizes understanding and elects to proceed with the injection. The procedure was verified with the patient, including the correct injection site, and confirmation with both the patient and program support assistant. Under sterile technique following verbal consent the patient underwent a left knee injection with 2cc of 6 mg/ml Celestone with 3 cc 1% Lidocaine and tolerated the procedure well without complications. The injection was performed through a superior-lateral portal to the knee without incident. The patient tolerated the injection well. Verbal instructions on post-injection care were given. Esequiel Meneses PA-C ASSESSMENT AND PLAN Impression: Left Knee Severe Degenerative Osteoarthritis, Primary and Right Knee Severe Degenerative Osteoarthritis, Primary After discussion with Leisa Mckay, and her current situation 3 months S/P gastric sleeve, losing weight along with her young age place her at increased risk for infection and failure. She has opted for continued non-operative management of injection(s) and bracing. We will try a cortisone injection on the left and an unoader brace on the right. was chosen. Ade is unable to take PO NSAIDs due to being S/P gastric sleeve The patient currently has had six months of unsuccessful non-operative treatment as outlined in the HPI below and progressive symptoms. Progressive Symptoms Include: Pain impacting sleep or causing fatigue Pain impacting work Pain worsened by weight bearing Pain effecting living situation Pain limiting ability to stay fit and healthy. The patient has been ordered: No orders placed today. CONSULTS: Patient does not require consults for optimization at this time. There is no problem list on file for this patient. SUBJECTIVE CHIEF COMPLAINT: Knee Pain HPI: Leisa Mckay is a 41 year old female here for evaluation and management of bilateral knee pain, right > left. 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 The problem began limiting activities 3+ years ago. Currently the pain in the joint is rated at 5-7 out of 10 with minimal activity. The pain is constant and is located along the outside aspect. The pain is described as crushing, throbbing and popping. Relieving factors include rest and repositioning. There is no specific incident that brought about this pain. She has no additional complaints. FUNCTIONAL STATUS: Have sexual relations (5.25 METs) Preoperative Ambulatory Status: Impaired Community Distances Number of Entry Steps: 3 Bedroom Location: Second floor Bathroom Location: First floor Caregiver Assistance: Consistent/Live-In (5-7 days/wk) Home Location: Up to 150 miles PREVIOUS TREATMENTS: Attempted Weight Loss Medical Treatments: Intolerant of NSAIDS, Steroid Injections Left Knee, Steroid Injections Right Knee, Viscosupplementation Left Knee, Viscosupplementation Right Knee Physical Therapy: PT Three Months or Greater Previous Surgery: gastric sleeve and has lost ~ 70 pounds REVIEW OF SYSTEMS: PAIN ASSESSMENT: See HPI. MUSCULOSKELETAL: See HPI. Surgical Risk Factors: obesity PAST MEDICAL HISTORY Diagnosis Date - Arthritis PAST SURGICAL HISTORY Procedure Laterality Date - CHOLECYSTECTOMY HX - ORTHOPEDICS SURGERY HX No family history on file. Social History Marital status: Spouse name: Years of education: Number of children: Social History Main Topics Smoking status: Former Smoker Packs/day: 0.00 Years: 0.00 Smokeless tobacco: Never Used Alcohol use: No Drug use: No ALLERGIES: Patient has no known allergies. MEDICATIONS: oxyCODONE-acetaminophen (PERCOCET) 5-325 mg tablet Take 1 tablet by mouth q 12 HR. ferrous sulfate 325 mg (65 mg iron) tablet ferrous sulfate 325 mg (65 mg iron) tablet Omeprazole 40 mg capsule VITAMIN B-1 50 mg tablet take 1 tablet by mouth ONCE A DAY FOR 4 WEEKS ergocalciferol, vitamin D2, (DRISDOL) 50,000 unit capsule Vitamin D2 50,000 unit capsule pseudoephedrine (SUDAFED) 30 mg tablet Take 1 tablet by mouth every 6 hours as needed. ibuprofen 800 mg tablet Take 800 mg by mouth three times daily. PHYSICAL EXAM: BP 116/56 Pulse (!) 54 Ht 162.6 cm (5' 4) Wt 100.8 kg (222 lb 1.9 oz) LMP 09/04/2017 BMI 38.13 kg/m? All other systems deferred. GENERAL: Appears healthy, well-nourished, no deformities. HABITUS: Obese UPPER EXTREMITIES: No restriction of function that would interfere with the use of ambulatory aids GAIT: Antalgic to the right KNEE EXAM: Left: Alignment: Valgus deformity, Correctable Range of motion is 0 degrees in extension and 110 degrees of flexion. Extension La degrees Pain with ROM: Yes Effusion: Slight Tender to the palpation of Lateral joint line Pain with patellar compression: No Stability: Anterior/Posterior stable, patient has mild laxity and slight joint space opening LATERAL with varus stress. Hip Exam: flexion to 100+ degrees, full extension, internal/external rotation adequate and no pain with log roll Neurovascular Status: Sensation Intact, Moves foot and ankle up AND down, Moves toes up and down and 2+ dorsalis pedis Right: Alignment: Valgus deformity, Partially Correctable Range of motion is 20 degrees in extension and 80 degrees of flexion. Extension La-20 degrees Pain with ROM: Yes Effusion: Mild Tender to the palpation of Patellar tendon, Medial joint line and Lateral joint line Pain with patellar compression: Yes Stability: Anterior/Posterior stable, patient has mild laxity and slight joint space opening LATERAL with varus stress. Hip Exam: flexion to 100+ degrees, full extension, internal/external rotation adequate and no pain with log roll Neurovascular Status: Sensation Intact, Moves foot and ankle up AND down, Moves toes up and down and 2+ dorsalis pedis DATA: Diagnostic tests reviewed for today's visit: Right knee X-Ray: Lateral joint space noted to have severe degenerative changes and Patellofemoral joint noted to have moderate degenerative changes Left knee X-Ray: Lateral joint space noted to have severe degenerative changes The following conditions were addressed during the office visit today: Obesity - Weight management strategies SIGNATURE: Esequiel Meneses PA-C PATIENT NAME: Leisa Mckay DATE: September 18, 2017 TIME: 2:17 PM CNOV Observed: 09/18/2017 Status: COMPLETED Source: [facility] 2:00 PM [facility] REPOSITORY Office Visit (ORMDNA) LEISA MCKAY ([id number]) 1975 F Date Time Provider Department 09/18/17 2:00 PM ESEQUIEL MENESES) JESUS During your visit today, we recorded the following information about you: Pulse Blood pressure Weight Height 54/minute 116/56 100.8 kg 1.626 m Last Period 09/04/17 Tamara Acevedo Ma 09/18/2017 2:07 PM Signed Patient presents with: Bilateral Knee Pain Esequiel Meneses PA-C 09/18/2017 3:10 PM Signed CONSULT ORTHOPAEDIC: KNEE PRIMARY CARE PHYSICIAN: Salma Hough MD REFERRING PROVIDER: SELF PROCEDURE- JOINT INJECTION Joint Sites: knee She has had previous injections in the past. On exam, the joint is cool to touch without sign of infection. Flexion is limited and is uncomfortable. Crepitation is present with ROM. The proposed risks versus benefits of local anesthetic and steroid injection were discussed in detail. The patient verbalizes understanding and elects to proceed with the injection. The procedure was verified with the patient, including the correct injection site, and confirmation with both the patient and program support assistant. Under sterile technique following verbal consent the patient underwent a left knee injection with 2cc of 6 mg/ml Celestone with 3 cc 1% Lidocaine and tolerated the procedure well without complications. The injection was performed through a superior-lateral portal to the knee without incident. The patient tolerated the injection well. Verbal instructions on post-injection care were given. Esequiel Meneses PA-C ASSESSMENT AND PLAN Impression: Left Knee Severe Degenerative Osteoarthritis, Primary and Right Knee Severe Degenerative Osteoarthritis, Primary After discussion with Leisa Mckay, and her current situation 3 months S/P gastric sleeve, losing weight along with her young age place her at increased risk for infection and failure. She has opted for continued non-operative management of injection(s) and bracing. We will try a cortisone injection on the left and an unoader brace on the right. was chosen. Ade is unable to take PO NSAIDs due to being S/P gastric sleeve The patient currently has had six months of unsuccessful non-operative treatment as outlined in the HPI below and progressive symptoms. Progressive Symptoms Include: Pain impacting sleep or causing fatigue Pain impacting work Pain worsened by weight bearing Pain effecting living situation Pain limiting ability to stay fit and healthy. The patient has been ordered: No orders placed today. CONSULTS: Patient does not require consults for optimization at this time. There is no problem list on file for this patient. SUBJECTIVE CHIEF COMPLAINT: Knee Pain HPI: Leisa Mckay is a 41 year old female here for evaluation and management of bilateral knee pain, right > left. 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 The problem began limiting activities 3+ years ago. Currently the pain in the joint is rated at 5-7 out of 10 with minimal activity. The pain is constant and is located along the outside aspect. The pain is described as crushing, throbbing and popping. Relieving factors include rest and repositioning. There is no specific incident that brought about this pain. She has no additional complaints. FUNCTIONAL STATUS: Have sexual relations (5.25 METs) Preoperative Ambulatory Status: Impaired Community Distances Number of Entry Steps: 3 Bedroom Location: Second floor Bathroom Location: First floor Caregiver Assistance: Consistent/Live-In (5-7 days/wk) Home Location: Up to 150 miles PREVIOUS TREATMENTS: Attempted Weight Loss Medical Treatments: Intolerant of NSAIDS, Steroid Injections Left Knee, Steroid Injections Right Knee, Viscosupplementation Left Knee, Viscosupplementation Right Knee Physical Therapy: PT Three Months or Greater Previous Surgery: gastric sleeve and has lost ~ 70 pounds REVIEW OF SYSTEMS: PAIN ASSESSMENT: See HPI. MUSCULOSKELETAL: See HPI. Surgical Risk Factors: obesity PAST MEDICAL HISTORY Diagnosis Date - Arthritis PAST SURGICAL HISTORY Procedure Laterality Date - CHOLECYSTECTOMY HX - ORTHOPEDICS SURGERY HX No family history on file. Social History Marital status: Spouse name: Years of education: Number of children: Social History Main Topics Smoking status: Former Smoker Packs/day: 0.00 Years: 0.00 Smokeless tobacco: Never Used Alcohol use: No Drug use: No ALLERGIES: Patient has no known allergies. MEDICATIONS: oxyCODONE-acetaminophen (PERCOCET) 5-325 mg tablet Take 1 tablet by mouth q 12 HR. ferrous sulfate 325 mg (65 mg iron) tablet ferrous sulfate 325 mg (65 mg iron) tablet Omeprazole 40 mg capsule VITAMIN B-1 50 mg tablet take 1 tablet by mouth ONCE A DAY FOR 4 WEEKS ergocalciferol, vitamin D2, (DRISDOL) 50,000 unit capsule Vitamin D2 50,000 unit capsule pseudoephedrine (SUDAFED) 30 mg tablet Take 1 tablet by mouth every 6 hours as needed. ibuprofen 800 mg tablet Take 800 mg by mouth three times daily. PHYSICAL EXAM: BP 116/56 Pulse (!) 54 Ht 162.6 cm (5' 4) Wt 100.8 kg (222 lb 1.9 oz) LMP 09/04/2017 BMI 38.13 kg/m? All other systems deferred. GENERAL: Appears healthy, well-nourished, no deformities. HABITUS: Obese UPPER EXTREMITIES: No restriction of function that would interfere with the use of ambulatory aids GAIT: Antalgic to the right KNEE EXAM: Left: Alignment: Valgus deformity, Correctable Range of motion is 0 degrees in extension and 110 degrees of flexion. Extension La degrees Pain with ROM: Yes Effusion: Slight Tender to the palpation of Lateral joint line Pain with patellar compression: No Stability: Anterior/Posterior stable, patient has mild laxity and slight joint space opening LATERAL with varus stress. Hip Exam: flexion to 100+ degrees, full extension, internal/external rotation adequate and no pain with log roll Neurovascular Status: Sensation Intact, Moves foot and ankle up AND down, Moves toes up and down and 2+ dorsalis pedis Right: Alignment: Valgus deformity, Partially Correctable Range of motion is 20 degrees in extension and 80 degrees of flexion. Extension La-20 degrees Pain with ROM: Yes Effusion: Mild Tender to the palpation of Patellar tendon, Medial joint line and Lateral joint line Pain with patellar compression: Yes Stability: Anterior/Posterior stable, patient has mild laxity and slight joint space opening LATERAL with varus stress. Hip Exam: flexion to 100+ degrees, full extension, internal/external rotation adequate and no pain with log roll Neurovascular Status: Sensation Intact, Moves foot and ankle up AND down, Moves toes up and down and 2+ dorsalis pedis DATA: Diagnostic tests reviewed for today's visit: Right knee X-Ray: Lateral joint space noted to have severe degenerative changes and Patellofemoral joint noted to have moderate degenerative changes Left knee X-Ray: Lateral joint space noted to have severe degenerative changes The following conditions were addressed during the office visit today: Obesity - Weight management strategies SIGNATURE: Esequiel Meneses PA-C PATIENT NAME: Leisa Mckay DATE: September 18, 2017 TIME: 2:17 PM Referring Provider: SELF [[id number]] Allergies As of Date: 09/18/2017 (No Known Allergies) Date Reviewed: 09/18/2017 Reviewed by: Esequiel Meneses (Pa) - Fully Assessed Reason for Visit: Bilateral Knee Pain [1210] Primary Visit Diagnosis:Primary osteoarthritis of right knee [M17.11] Other Visit Diagnosis:Primary osteoarthritis of left knee [M17.12] Order(s):OA PATIENT READY BRACE [[id number]] Order #: [id number] [] betamethasone acetate-betamethasone sodium phosphate 2 mg, lidocaine (PF) 10 mg/mL (1 %) 30 mgDisp: Rfl: Prescriptions as of 09/18/2017 Sig: OXYCODONE-ACETAMINOPHEN 5 MG-* Take 1 tablet by mouth q 12 H* FERROUS SULFATE 325 MG (65 MG* ferrous sulfate 325 mg (65 mg* OMEPRAZOLE 40 MG CAPSULE,PADMA* VITAMIN B-1 50 MG TABLET take 1 tablet by mouth ONCE A* ERGOCALCIFEROL (VITAMIN D2) 5* Vitamin D2 50,000 unit capsule PSEUDOEPHEDRINE 30 MG TABLET Take 1 tablet by mouth every * Patient not taking: Reported on 09/18/2017 IBUPROFEN 800 MG TABLET Take 800 mg by mouth three ti* Problem List As Of Date: 09/18/2017 (None) Visit Notes: >> Tamara Acevedo Kanwal Carmen Sep 18, 2017 2:07 PM Status: Signed Patient presents with: Bilateral Knee Pain Prescriptions ordered this encounter Disp Refills Start End CAM IMAN INJECTION BUILDER 09/18/2017 09/18/2017 Class: Suppress Questions Route: IAtc Follow-up and Disposition History Recorded Encounter Status:Closed by ESEQUIEL MENESES PA-C on 09/18/17 PROGRESS Observed: 09/16/2017 Status: COMPLETED Source: [facility] 1:29 PM [facility] OTHER [facility] REPOSITORY HNO ID: [id number] Author: Amee (Ct) RONNELL Porter Service: (none) Author Type: Clinical Access Analyst Type: Progress Notes Filed: 09/16/2017 1:29 PM Note Text: NAME:Leisa Mckay DATE: September 16, 2017 CCF#: [id number] Lower Extremity X-Ray(s): Knee, AP / Lat / Merchant Bilateral and Wt. Bearing COMPLETED TECH ID SIGN: RITIKA GARCIA XR KNEE 3V AP/LAT/TEDDY Observed: 09/16/2017 Status: F Source: [facility] 1:22 PM CLINIC OTHER CAMPUS REPOSITORY * * *Final Report* * * DATE OF EXAM: Sep 16 2017 1:22PM CARMEN [id number] - XR KNEE 3V AP/LAT/TEDDY BAUDILIO / PROCEDURE REASON: [id number], unspecified * * * * Physician Interpretation * * * * EXAMINATION: XR KNEE 3V AP/LAT/TEDDY BAUDILIO CLINICAL HISTORY: KNEE PAIN Pain, unspecified Technique: XR KNEE 3V AP/LAT/TEDDY BAUDILIO -- BILATERAL knees with 3 EACH views on 4 images Comparison: 07/08/2014 RESULT: Advanced bilateral lateral knee osteoarthritis with [id number] articulation and subchondral sclerosis. Bilateral valgus alignment. No fracture or dislocation. Tricompartment marginal osteophytes. No knee effusion. IMPRESSION: Advanced bilateral lateral compartment osteoarthritis, progressed since prior exam. Baggage Inspector: MARILYN Transcribe Date/Time: Sep 16 2017 5:49P Dictated by : ALFREDO TAPIA MD This examination was interpreted and the report reviewed and electronically signed by: ALFREDO TAPIA MD on Sep 16 2017 5:51PM EST [id number] BARIATRIC SURGERY - Observed: 08/14/2017 Status: UNK [facility]: [facility] 2:27 PM [facility] RE[facility] Chief Complaint The patient is having the following problems: severe heart burn it comes up in her mouth /fruits are not good for her. The patient is being seen today for a 6 week post-op visit. Type of surgery: Sleeve Gastrectomy. surgery date: 07/02/17 6 weeks History of Present Illness This is the patient's 6 week post op visit. Weight: Inital Weight: 285 lbs Last Visit Weight: 243.2 lbs Current Weight: 233 lbs Total Weight Lost: 52 lbs. Food: Does not drink soda Breakfast: protein shake Eating problems: none except waking up with heart hurn in her mouth Lunch: canned hicken and 1/2 protein shake Dinner: mashed pot [employer] system pork Fluid intake: 64++ oz Exercise includes swimming and walking. Review of Systems Constitutional: no chills, no fever and no night sweats. Eyes: no blurred vision and no eyesight problems. ENT: no hearing loss, no nasal congestion, no nasal discharge, no hoarseness and no sore throat. Cardiovascular: no chest pain, no intermittent leg claudication, no lower extremity edema, no palpitations and no syncope. Respiratory: no cough, no shortness of breath during exertion, no shortness of breath at rest and no wheezing. Gastrointestinal: as noted in HPI, no abdominal pain, no blood in stools, no constipation, no diarrhea, no melena, no nausea, no rectal pain and no vomiting . GERD. Genitourinary: no dysuria, no change in urinary frequency, no urinary hesitancy, no feelings of urinary urgency and no vaginal discharge. Musculoskeletal: no arthralgias, no back pain and no myalgias. Integumentary: no new skin lesions and no rashes. Neurological: no difficulty walking, no headache, no limb weakness, no numbness and no tingling. Psychiatric: no anxiety, no depression, no anhedonia and no substance use disorders. Endocrine: no recent weight gain and no recent weight loss. Hematologic/Lymphatic: no tendency for easy bruising and no swollen glands. Active Problems Abdominal pain (789.00) (R10.9) Acid reflux (530.81) (K21.9) Acquired deviated nasal septum (470) (J34.2) Acute bronchitis (466.0) (J20.9) Acute postoperative pain of abdomen (338.18,789.00) (G89.18,R10.9) Acute UTI (599.0) (N39.0) Anxiety (300.00) (F41.9) Bariatric surgery status (V45.86) (Z98.84) Carpal tunnel syndrome (354.0) (G56.00) Common migraine without aura (346.10) (G43.009) Diabetes mellitus type 2, uncontrolled (250.02) (E11.65) Epidermal inclusion cyst (706.2) (L72.0) Fatigue (780.79) (R53.83) H. pylori infection (041.86) (A04.8) Headache (784.0) (R51) Incisional hernia (553.21) (K43.2) Status post robotic assisted, laparoscopic repair of this incarcerated incisional hernia on 11/16/2015 at [facility]; satisfactory healing and postoperative course Supraumbilical, symptomatic, as described Iron deficiency anemia (280.9) (D50.9) Joint pain, knee (719.46) (M25.569) Knee osteoarthritis (715.36) (M17.10) Morbid obesity (278.01) (E66.01) Obstructive sleep apnea of adult (327.23) (G47.33) Pilonidal cyst (685.1) (L05.91) Postop check (V67.00) (Z09) Post-operative nausea and vomiting (787.01) (R11.2,Z98.890) Pre-op testing (V72.84) (Z01.818) S/P laparoscopic sleeve gastrectomy (V45.86) (Z98.84) Sinusitis (473.9) (J32.9) Sleep apnea (780.57) (G47.30) Sprain of right knee (844.9) (S83.91XA) Traumatic arthritis of knee (716.16) (M12.569) Ventral hernia (553.20) (K43.9) Vitamin D insufficiency (268.9) (E55.9) Weight gain (783.1) (R63.5) Past Medical History History of gestational diabetes (V12.21) (Z86.32) History of morbid obesity (V13.89) (Z87.898) Personal history of arthritis (V13.4) (Z87.39) Surgical History History of Section x 2 History of Eye Surgery Results Strabismus History of Foot Repair age 12 History of Gastrectomy Sleeve Laparoscopic History of Knee Surgery right x 6 History of Nose Surgery History of Surgery fb face Family History Family history of Acute Myocardial Infarction (V17.3) Family history of Benign Essential Hypertension Family history of Type 2 Diabetes Mellitus Social History Living Situation: Supportive and safe Never smoker No alcohol use No drug use Non-smoker (V49.89) (Z78.9) Occupation Works in the [employer] at [employer] for the past year usually works at 32-34 hours per week with a 9 hour shifts. Prior to [employer] and had worked at a [employer] for 6 months. 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 She worked for approximate 2 years for [employer] prior to having her children. 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 Denies any other workers consultation injuries or exposures at work graduated from high school in 1995. 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 She denies smoking or alcohol use. She lives in [place]. She is 2 para 2 abortus 0. She has 3 children. She had twins. Allergies No Known Allergies Recorded By: Salma Hough; 02/28/2012 1:54:04 PM Current Meds Omeprazole 40 MG Oral Capsule Delayed Release; TAKE 1 CAPSULE Daily; Therapy: 19Jun2017 to (Last Rx:19Jun2017) Requested for: 19Jun2017 Ordered Rx By: Amanda Chow; Dispense: 0 Days ; #:30 Capsule Delayed Release; Refill: 2;For: Acid reflux, Morbid obesity; KEILY = N; Verified Transmission to [address] Lidocaine 5 % External Patch; APPLY 1 PATCH TO THE AFFECTED AREA AND LEAVE IN PLACE FOR 12 HOURS, THEN REMOVE AND LEAVE OFF FOR 12 HOURS; Therapy: 19Jun2017 to (Evaluate:24Jun2017) Requested for: 19Jun2017; Last Rx:19Jun2017 Ordered Rx By: Amanda Chow; Dispense: 5 Days ; #:5 Patch; Refill: 0;For: Acute postoperative pain of abdomen; KEILY = N; Verified Transmission to [address] Vitamin B-1 50 MG Oral Tablet; take 1 tablet 1x a day for 4 weeks; Therapy: 19Jun2017 to (Last Rx:19Jun2017) Requested for: 19Jun2017 Ordered Rx By: Amanda Chow; Dispense: 0 Days ; #:30 Tablet; Refill: 0;For: Bariatric surgery status; KEILY = N; Verified Transmission to [address] Oxycodone-Acetaminophen 5-325 MG/5ML Oral Solution; Therapy: [id number] to Recorded Dispense: 0 Days ; #: Sufficient ML; Refill: 0;For: Joint pain, knee, Knee osteoarthritis; KEILY = N; Record; Last Updated By: Dana Lugo; 04/04/2017 10:06:09 AM Ondansetron 4 MG Oral Tablet Disintegrating; TAKE 4 MG Every 6 hours PRN; Therapy: 19Jun2017 to (Last Rx:19Jun2017) Requested for: 19Jun2017 Ordered Rx By: Amanda Chow; Dispense: 0 Days ; #:30 Tablet Disintegrating; Refill: 1;For: Post-operative nausea and vomiting; KEILY = N; Verified Transmission to [address] Vitamin D (Ergocalciferol) 20998 UNIT Oral Capsule; TAKE 1 CAPSULE WEEKLY; Therapy: 19May2017 to (Evaluate:[id number]) Requested for: 20May2017; Last Rx:19May2017 Ordered Rx By: Amanda Chow; Dispense: 5 Days ; #:5 Capsule; Refill: 2;For: Vitamin D insufficiency; KEILY = N; Verified Transmission to [address] IMVU Mini w/Device Kit; USE DIRECTED TO TEST TWICE A DAY; Therapy: 15Dec2016 to Recorded Rx By: GIANLUCA; Dispense: 30 Days ; #:1 KIT; Refill: 0; KEILY = N; Record; Last Updated By: Salma Hough; 03/14/2017 10:47:06 AM Vitals Vital Signs Recorded: 14Aug2017 02:19PM Heart Rate53 Wdmgkges583 Zfpahdtty42 Height5 ft 3.5 in Rbercb013 lb BMI Ivlgesysqg79.63 BSA Calculated2.08 Physical Exam Constitutional: No acute distress, well appearing and well nourished. Abdominal exam: soft and nontender. Incision:. clean, dry and intact. Pulmonary - Respiratory effort: Normal, no GFR. Musculoskeletal - Joints, bones, and muscles: Normal. Muscle strength/tone: Normal. Skin - Assessment of incision: Clean, dry, and intact. Neurologic - Cranial Nerve Exam: (Two) II through (twelve) XII intact grossly. Coordination: Normal gait. Psychiatric - Orientation to person, place, and time: Normal. Mood and affect: Normal. Diagnoses/Problems Bariatric surgery status (V45.86) (Z98.84) S/P laparoscopic sleeve gastrectomy (V45.86) (Z98.84) GERD without esophagitis (530.81) (K21.9) Provider Impressions 6 weeks after laparoscopic sleeve gastrectomy Lost more than 30 pounds Continues to have reflux Eating okay Ambulating okay Exam is benign Suture not removed Impression: Doing well however significant reflux Recommendations: Will start dexilant With Carafate Continue multivitamins calcium B12 Increase exercise Follow-up 6 weeks Follow-up dietitian End of Encounter Meds Lidocaine 5 % External Patch; APPLY 1 PATCH TO THE AFFECTED AREA AND LEAVE IN PLACE FOR 12 HOURS, THEN REMOVE AND LEAVE OFF FOR 12 HOURS; Therapy: 81Pwy2938 to (Evaluate:24Jun2017) Requested for: 19Jun2017; Last Rx:19Jun2017 Ordered Omeprazole 40 MG Oral Capsule Delayed Release; TAKE 1 CAPSULE Daily; Therapy: 19Jun2017 to (Last Rx:19Jun2017) Requested for: 19Jun2017 Ordered Ondansetron 4 MG Oral Tablet Disintegrating; TAKE 4 MG Every 6 hours PRN; Therapy: 19Jun2017 to (Last Rx:19Jun2017) Requested for: 19Jun2017 Ordered FiTeq w/Device Kit; USE DIRECTED TO TEST TWICE A DAY; Therapy: 09Xip4614 to Recorded Oxycodone-Acetaminophen 5-325 MG/5ML Oral Solution; Therapy: 55Wto0251 to Recorded Vitamin B-1 50 MG Oral Tablet; take 1 tablet 1x a day for 4 weeks; Therapy: 19Jun2017 to (Last Rx:19Jun2017) Requested for: 19Jun2017 Ordered Vitamin D (Ergocalciferol) 82115 UNIT Oral Capsule; TAKE 1 CAPSULE WEEKLY; Therapy: 85Bsh8937 to (Evaluate:32Gok2807) Requested for: 43Kvx7696; Last Rx:90Bzx0599 Ordered Signatures Electronically signed by : Amanda Chow MD; Aug 14 2017 2:27PM EST (Author) BARIATRIC SURGERY - Observed: 08/13/2017 Status: UNK Source: [facility] FOLLOW-UP 4:35 PM [facility] REPOSITORY No report was sent CNCO Observed: 07/04/2017 Status: COMPLETED Source: [place] 12:00 AM [facility] REPOSITORY Letter Text Alo Rivera MD [facility] [address] [place] [address] Leisa Mckay July 04, 2017 Leisa Nely [address] [address] Dear Nely, It was noted that you did not keep your scheduled appointment on 07/04/2017. It is important to contact the office in advance if you are unable to keep your appointment so that it is available for other patients. Your medical care is important to us. Please call our office to reschedule an appointment. Sincerely, Alo Rivera MD UPPER G.I. SERIES Observed: 07/03/2017 Status: F Source: [facility] 1:[address] [facility] Patient: LEISA MCKAY MR#: [id number] [place], [place] [address] : [address] Amanda Chow MD Dept: Diagnostic Imaging Loc: 2JNT 218-1 DI REPORT Service Dt:07/03/17 Report#: [id number] Adm Dt: 07/02/17 Dis Dt: 07/03/17 Comments: AUTH# [id number] STUDY: CR Upper G.I. Series; 07/03/2017 9:50 am INDICATION: 41 y/o F with Bariatric Surgery Postoperative. COMPARISON: None. ACCESSION NUMBER(S): [id number] ORDERING CLINICIAN: Amanda Chow TECHNIQUE: Images of the liower esophagus, stomach, duodenum and proximal small bowel were obtained. CONTRAST MEDIA: Oral water soluble contrast. FLUOROSCOPY TIME: Fluoroscopy time: 1 min 6 sec. FINDINGS: ESOPHAGUS: Lower esophagus unremarkable. STOMACH: There is normal postoperative appearance of the gastric sleeve. There is a normal narrow lumen of the proximal and mid gastric lumen. There is flow into the distal body and antrum of the stomach. There is flow into the duodenal bulb and C-loop There is no evidence for a postoperative leak. There is no evidence for gastric obstruction. EMPTYING INTO THE DUODENUM: Normal. DUODENUM: Normal. DUODENAL-JEJUNAL JUNCTION: Normal and located in the left upper quadrant of the abdomen. GASTROESOPHAGEAL REFLUX: None observed. Status post cholecystectomy. IMPRESSION: Unremarkable postoperative gastric sleeve. Dictated by: Kelsi Mccarthy Electronically Signed by: Kelsi Mccarthy 07/03/2017 1:31 PM DISCHARGE SUMMARY Observed: 07/03/2017 Status: F Source: [place] 12:30 PM [facility] Patient: LEISA MCKAY MR#: [id number] [place], [place] [address] : [address] Dept: PDOC Loc: 2JNT 218-1 Discharge Summary Service Dt: 07/03/17 Report#: [id number] Adm Dt: 07/02/17 Dis Dt: Discharge Summary - Narrative Summary Hospital Course: 41 year old morbidly obese admitted gor gastric sleeve. patient tolerated procedure well. Post operative phase was uneventful. Labs with in normal limits. Upper gi done there were no leaks or obstruction. she was ambulating , toileting orals, no fevers. she was then discharged home - Vital Signs Vitals: Vital Signs (last response) Temperature 100.0 F H 07/03/17 10:00 Pulse/Heart Rate 61 07/03/17 10:00 Respiratory Rate 18 07/03/17 10:00 Blood Pressure 157/81 H 07/03/17 10:00 O2 Sat by Pulse Oximetry 96 07/03/17 10:00 - Physical Examination General appearance: alert, in no apparent distress Limitations: Positive: no limitations Head: Positive: normal inspection Eyes: Positive: normal appearance Pupils: Positive: equal and reactive ENT: Positive: normal exam Neck: Positive: normal inspection Adenopathy: Positive: No Regional Adenopathy Respiratory: Positive: normal lung sounds bilaterally Cardiovascular: Positive: regular rate, normal rhythm, normal heart sounds GI/Abdominal: Positive: soft, nontender, normal bowel sounds, incision (C/D/I) Extremities: Positive: normal inspection, no edema Neurological: Positive: alert, oriented X3, CN II-XII intact Integumentary: Positive: warm, dry, intact - Disposition Disposition: TO HOME - Other Patient Information Activity: Activity Ordered Up in Chair when Stable a Diet: Diet Full Liquid Diet - Consistency Start FriJuly 03 Lunch Referrals: Amanda Chow MD [Courtesy] - (next at your assigned time ) Salma Hough MD [Primary Care Provider] - - Discharge Medications Meds: Home Medications Medication Instructions Recorded Calcium Carbonate/Vitamin D3 1 each PO BID 06/20/17 [Calcium 500 mg Chewable Tablet] Cyanocobalamin (Vitamin B-12) 1,000 mcg PO DAILY 06/20/17 [Vitamin B12] Ergocalciferol [Vitamin D 50,000 1 cap PO Q7D@1000 06/20/17 UNITS] Naproxen Sodium [Aleve] 220 mg PO DAILY 06/20/17 Pediatric Multivit Comb No.42 1 each PO BID 06/20/17 [Flintstones] SURGICAL PROGRESS Observed: 07/03/2017 Status: F Source: [place] NOTE 12:28 PM [facility] Patient: LEISA MCKAY [address] MR#: [id number] [place] [address] : 1975 [address] : Dept: PDOC Loc: 2JNT 218-1 Surgical Progress Note Service Dt: 07/03/17 Report#: [id number] Adm Dt: 07/02/17 Dis Dt: Surgical Progress Note - Patient Visit Reason Visit Reason: MORBID OBESITY - I O/Vital Signs I O/VS: Intake/Output/Wt 06/30/17 07/01/17 07/02/17 07/03/17 23:59 23:59 23:59 23:59 Intake Total 4247 1257 Output Total 40 Balance 4207 1257 Intake: Intake 1047 1017 Kefzol Bag 2 GM In Iso- 100 Osmotic Dextrose 100 ml @ 200 mls/hr IVPB 0050 ONE Rx#:[id number] Lactated Ringers Solution 847 917 1,000 ml @ 140 mls/hr IV .Q7H9M [facility] Rx#:[id number] Anesthesia Fluid Intake 3200 in OR Oral 240 Output: Estimated Blood Loss 40 Vital Signs (last 24 hrs) Temp Pulse Resp BP Pulse Ox 07/03/17 10:00 100.0 F H 61 18 157/81 H 96 07/03/17 06:00 99.1 F 72 18 170/88 H 96 07/03/17 02:00 97.5 F L 79 18 154/83 H 96 07/02/17 22:00 97.5 F L 77 18 162/86 H 96 07/02/17 18:00 66 24 168/83 H 92 07/02/17 17:30 92 07/02/17 17:00 66 24 168/83 H 99 07/02/17 16:45 66 21 170/78 H 96 07/02/17 16:30 75 26 H 176/84 H 98 07/02/17 16:15 72 27 H 175/84 H 100 07/02/17 16:00 69 16 180/84 H 100 07/02/17 15:45 66 25 H 187/83 H 100 07/02/17 15:30 98.2 F 66 16 191/91 H 100 - Lab Diagnostic Data Diagrams: 07/03/17 06:30 07/03/17 06:30 Labs: Hematology (last 24 hrs) 07/03/17 06:30 WBC 8.2 RBC 4.56 Hgb 13.0 Hct 39.4 MCV 86.4 MCH 28.5 MCHC 33.0 RDW 13.7 Plt Count 289 D MPV 10.7 H Immature Gran % (Auto) 0.4 Neut % (Auto) 80 H Lymph % (Auto) 11 L [place] % (Auto) 8 Eos % (Auto) 0 Baso % (Auto) 0 Nucleat RBC Rel Count 0.0 Immature Gran # (Auto) 0.0 Neut # (Auto) 6.6 Lymph # (Auto) 0.9 L [place] # (Auto) 0.7 Eos # (Auto) 0.0 L Baso # (Auto) 0.0 L Chemistry (last 24 hrs) 07/03/17 06:30 Sodium 140 Potassium 4.1 Chloride 107 Carbon Dioxide 23 Anion Gap 14.1 BUN 9 Creatinine 0.6 Estim Creat Clear Calc 81 Est GFR ( Amer) >60 Est GFR (Non-Af Amer) >60 Fasting Glucose 120 H Calcium 8.8 - Medications Meds: Current Medications Fentanyl Citrate (Fentanyl Senior Paralegal Pump) 0 mcg IV WINE CONSULTANT PRN; Protocol PRN Reason: Pain Last Admin: 07/02/17 17:49 Dose: 2,000 mcg Heparin Sodium (Heparin Sodium) 5,000 units SC Q8 [facility] Last Admin: 07/03/17 05:12 Dose: 5,000 units Lactated Ringer's (Lactated Ringers Solution) 1,000 mls @ 140 mls/hr IV .Q7H9M [facility] Last Admin: 07/03/17 06:27 Dose: 140 mls/hr Pantoprazole Sodium 40 mg/ (Sodium Chloride) 10 mls @ 300 mls/hr IV DAILY [facility] PRN Reason: Protocol Stop: 07/05/17 09:59 Last Admin: 07/03/17 09:23 Dose: 300 mls/hr Ketorolac Tromethamine (Toradol Inj) 15 mg IV Q6 PRN PRN Reason: Pain-breakthrough Stop: 07/07/17 15:35 Last Admin: 07/03/17 05:11 Dose: 15 mg Metoclopramide HCl (Reglan) 10 mg IV Q6 PRN PRN Reason: Nausea/vomiting Ondansetron HCl (Zofran) 4 mg IV Q6 PRN PRN Reason: Nausea/vomiting Last Admin: 07/02/17 18:40 Dose: 4 mg Oxycodone HCl (Roxicodone Hcl) 5 - 10 mg PO Q4 PRN PRN Reason: Pain Last Admin: 07/03/17 11:24 Dose: 10 mg Allergies/Adv: Allergies Allergy/AdvReac Type Severity Reaction Status Date / Time No Known Allergies Allergy Verified 06/20/17 11:12 - Comments Impression Comments: 07/03/17 12:28 VSS Afebrile looks good minimal pain no nausea passing flatus ambulating Upper GI done no leaks Plan full liquids continue ambulation discharge later today COMPLETE BLOOD COUNT Collected: 07/03/2017 Status: F Source: [place] W/DIFF $$ 6:30 AM [facility] REPOSITORY TYPE CODE TESTS RESULT OUT OF REFERENCE UNITS RANGE LAB WBC 4.0-11.0 10 3/uL White Blood Count 8.2 LAB RBC 4.2-5.4 10 6/uL Red Blood Count 4.56 LAB HGB 12.0-16.0 g/dL Hemoglobin 13.0 LAB HCT 35-47 % Hematocrit 39.4 LAB MCV 80-100 fL Mean Corpuscular Volume 86.4 LAB MCH 27-34 pg Mean Corpuscular 28.5 Hemoglobin LAB MCHC 33-37 g/dL Mean Corpuscular Hgb 33.0 Conc LAB RDW 11.5-14.5 % Red Cell Distribution Width 13.7 LAB PLT 150-400 10 3/uL Platelet Count 289 LAB MPV 7.4-10.4 fL Mean Platelet High Volume 10.7 LAB NE% 42-76 % Neutrophils High (Auto) 80 LAB LY% 24-44 % Low Lymphocytes (Auto) 11 LAB MO% 1-8 % Monocytes (Auto) 8 LAB EO% 0-3 % Eosinophils (Auto) 0 LAB BA% 0-1 % Basophils (Auto) 0 LAB IG% 0.0-0.9 % Immature Granulocytes 0.4 (Auto) LAB NRBC% 0.0-0.0 % Nucleated RBC 0.0 LAB NE# 1.8-7.0 10 3/uL Neutrophils # (Auto) 6.6 LAB LY# 1-3.5 10 3/uL Low Lymphocytes # (Auto) 0.9 LAB MO# 0.04-0.9 10 3/uL Monocytes # (Auto) 0.7 LAB EO# 0.03-0.6 10 3/uL Low Eosinophils # (Auto) 0.0 LAB BA# 0.04-0.9 10 /uL Low Basophils # (Auto) 0.0 LAB IG# 10 3/uL Immature Gran# (Auto) 0.0 Performed By: #### CBC, BMP #### [address] [address] BASIC METABOLIC PANEL Collected: 07/03/2017 Status: F Source: [place] $$$ 6:30 AM [facility] REPOSITORY TYPE CODE TESTS RESULT OUT OF REFERENCE UNITS RANGE LAB NA 136-145 mmol/L Sodium 140 LAB K 3.5-5.1 mmol/L Potassium 4.1 LAB CL 98-107 mmol/L Chloride $ 107 LAB CO2 21-32 mmol/L Carbon Dioxide $ 23 LAB AGAP Anion Gap 14.1 LAB BUN 7-18 mg/dL Blood Urea Nitrogen 9 LAB CRET 0.6-1.3 mg/dL Creatinine 0.6 LAB GFRAA GFR ( >60 Togolese) LAB GFRNAA GFR (Non >60 [place]ogolese) Result Comment: eGFR Units of measure: mL/min/1.73 m 2 LAB ECRCL 75-115 mL/min Estimated Creatinine Clearance 81 LAB GLUF 74-106 mg/dL Glucose, High Fasting 120 LAB CA 8.5-10.1 mg/dL Calcium $ 8.8 Performed By: #### CBC, BMP #### [address] [address] POST-ANESTHESIA CARE NOTE Observed: 07/02/2017 Status: F Source: [place] 4:47 PM [facility] REPOSITORY [facility] Patient: LEISA MCKAY [address] [facility] MR#: [id number] [place], [place] [address] : 1975 [address] .: Dept: PDOC Loc: 1PACLD PACU2-1 Procedure Note Service Dt: 07/02/17 Report#: [id number] Adm Dt: 07/02/17 Dis Dt: Anesthesia DC Evaluation - Discharge Evaluation Anesthesia Discharge Evaluation: Inpatient - Vital Signs Vital Signs: Vital Signs (last response) Temperature 36.8 C 07/02/17 15:30 Pulse/Heart Rate 75 07/02/17 16:30 Respiratory Rate 26 H 07/02/17 16:30 Blood Pressure 176/84 H 07/02/17 16:30 O2 Sat by Pulse Oximetry 98 07/02/17 16:30 - Airway Airway: Patient with unassisted respiration(s) - Cardiovascular Cardiovascular: CV stable without support - Mental Status Mental Status: Awake and oriented X 3 - Pain Pain: Adequately controlled - Nausea/Vomiting Nausea/Vomiting: Absent - Post-Op Hydration Post-Op Hydration: IV fluids infusing per orders POST PROCEDURE Observed: 07/02/2017 Status: F Source: [place] PROGRESS NOTE 3:32 PM [facility] Patient: LEISA MCKAY MR#: [id number] [place], [place] [address] : 1975 [address] : Dept: PDOC Loc: 1PACUHLD PACU2-1 Post Procedure Progress Note Service Dt: 07/02/17 Report#: [id number] Adm Dt: 07/02/17 Dis Dt: Immediate Post-Procedure - Progress Note Pre-Op Diagnosis: morbid obesity Post-Op Diagnosis: same Procedure Description: laparoscopic sleeve gastrectomy EGD Type of Anesthesia: General Surgeon: Amanda Chow Assistants: Lorin Camejo Surgical Findings: normal anatomy, negative leak test Complications: No Specimen(s) Removed: Yes Specify: stomach Blood Administered: No EBL: Minimal Condition of Patient: Good OPERATIVE REPORT Observed: 07/02/2017 Status: F Source: [place] 12:00 AM [facility] Patient: LEISA MCKAYvd. MR#: [id number] [place] [address] : 1975 [facility]#: [id number] Att. Dr.: Amanda Chow MD Dept: Transcribed Reports Loc: 2JNT 218-1 Operative Report Service Dt: 07/02/17 Report#: [id number] Adm Dt: 07/02/17 Dis Dt: 07/03/17 OPERATIVE REPORT SURGEON: Amanda Chow MD ANESTHESIOLOGIST: PARTITION MAKING MACHINE OPERATOR(S): Lorin Camejo. PREOPERATIVE DIAGNOSIS: Morbid obesity. POSTOPERATIVE DIAGNOSIS: Morbid obesity. OPERATION PERFORMED: Laparoscopic sleeve gastrectomy, lysis of adhesions, intraoperative endoscopy. ANESTHESIA: GETT COMPLICATIONS: None. DISPOSITION: To recovery room. CONDITION: Stable. ESTIMATED BLOOD LOSS: Minimal. FLUIDS GIVEN: Crystalloids. CLINICAL NOTE: The patient is a 41-year-old female with history of morbid obesity and prior surgical hernia repair with mesh, who was electively scheduled for a sleeve gastrectomy. PROCEDURE: On the day of surgery, after verification of informed consent, she was given subq heparin and preoperative antibiotics and was taken to OR and placed in supine position on the table. SCDs were placed. General anesthesia was established. Timeout was done. Standard, sterile preparation and draping of abdominal wall was performed. Entry into abdominal cavity was obtained using a 5 mm optical trocar in the left midclavicular line in the upper quadrant area without technical problems. Pneumoperitoneum was established to 15 mmHg. There were no iatrogenic injuries at the entry site. A 5 mm port was placed in the left anterior axillary line. Using LigaSure device, the adhesions, which were noted in the upper midline area were partially taken down and a window was obtained on the right side where another 5 mm port was placed in the right lower quadrant. A 15 mm port was placed using additional lysis of adhesions. The omentum was freed up from the mesh in the upper midline area and this opened up the exposure to the left upper quadrant stomach area. Once this was obtained, now the patient was placed in the reverse Trendelenburg position and dissection was started on the greater omentum, which was dissected free from prepyloric area all the way to the fundus from the greater curvature of stomach using LigaSure device. Fundus was completely mobilized. Left susan was dissected and there was no obvious hiatal hernia noted. After dissection was completed, a 36 Faroese ViSiGi tube was inserted by anesthesiologist, guided into the pyloric channel and a sleeve gastrectomy was created on the outer edge of the bougie. First, a black Tri-Staple covered with SeamGuard was fired 5 cm from the pylorus in the antrum, second one against the incisura making sure no narrowing was created anteriorly purple loads all the way to the angle of His thus creating the sleeve. The specimen was retrieved through the 15-mm port site. Staple line was inspected, no technical issues were noted. The pylorus was occluded. Air was insufflated through the ViSiGi tube and sleeve was submerged underwater. There was no evidence of air bubbles. Tube was removed and a gastroscope was advanced all the way to the gastric pouch and leak test was repeated, which was negative. There were no internal bleeding or any technical issues. Scope was removed. Fluid was aspirated. Fascial defect at the 15-mm port site was closed with 2 interrupted 0 Vicryl sutures using Endopasser under laparoscopic vision. Tap block was performed in both anterior axillary lines using mixture of clonidine and 0.25% Marcaine. Final satisfactory examination of abdominal cavity was performed. There were no iatrogenic injuries or any active bleeding. Trocars were removed. Pneumoperitoneum was discontinued. Skin was closed with 4-0 Biosyn. Dermabond and sterile dressing were applied. The patient tolerated the operation well, was extubated in the OR and transferred to recovery room in stable condition. Amanda Chow MD D#: [id number] C#: [id number] <Electronically signed by Amanda Chow MD> 07/09/17 1126 URINALYSIS Collected: 06/20/2017 Status: F Source: [place] 11:45 AM [facility] REPOSITORY TYPE CODE TESTS RESULT OUT OF REFERENCE UNITS RANGE LAB UCOL Color, Urine Dark Yellow LAB [facility] Clarity, Urine Clear LAB UPH 5.0-9.0 pH, Urine 6.0 LAB USPG 1.000-1.030 Specific [place], Urine 1.020 LAB UTP Negative Protein, Urine Negative LAB UGL Negative Glucose, Urine Negative LAB UKET Negative Ketones, Urine Negative LAB UBLD Negative Urine Blood Negative LAB UNIT Negative Nitrates, Urine Negative LAB UBIL Negative Bilirubin, Urine Negative LAB UROB <2.0 mg/dL Urobilinogen, Normal Urine LAB ULEU Negative Leukocyte Negative Esterase, Urine LAB URBC 0-3 /HPF RBC, 0 Urine LAB UWBC 0-2 /HPF WBC, 0 Urine LAB EPI 0-5 /HPF Epithelial Cells Rare LAB MUCS /LPF Mucus, Urine Rare Performed By: #### UR #### [facility] [address] [place] [address] COMPLETE BLOOD COUNT Collected: 06/20/2017 Status: F Source: [place] W/DIFF $$ 11:40 AM [facility] REPOSITORY TYPE CODE TESTS RESULT OUT OF REFERENCE UNITS RANGE LAB WBC 4.0-11.0 10 3/uL White Blood Count 7.2 LAB RBC 4.2-5.4 10 6/uL Red Blood Count 5.28 LAB HGB 12.0-16.0 g/dL Hemoglobin 14.5 LAB HCT 35-47 % Hematocrit 44.8 LAB MCV 80-100 fL Mean Corpuscular Volume 84.8 LAB MCH 27-34 pg Mean Corpuscular 27.5 Hemoglobin LAB MCHC 33-37 g/dL Low Mean Corpuscular Hgb 32.4 Conc LAB RDW 11.5-14.5 % Red Cell Distribution Width 13.8 LAB PLT 150-400 10 3/uL Platelet Count High 407 LAB MPV 7.4-10.4 fL Mean Platelet Volume 10.1 LAB NE% 42-76 % Neutrophils (Auto) 62 LAB LY% 24-44 % Lymphocytes (Auto) 24 LAB MO% 1-8 % Monocytes High (Auto) 10 LAB EO% 0-3 % Eosinophils High (Auto) 4 LAB BA% 0-1 % Basophils (Auto) 1 LAB IG% 0.0-0.9 % Immature Granulocytes 0.6 (Auto) LAB NRBC% 0.0-0.0 % Nucleated RBC 0.0 LAB NE# 1.8-7.0 10 3/uL Neutrophils # (Auto) 4.5 LAB LY# 1-3.5 10 3/uL Lymphocytes # (Auto) 1.7 LAB MO# 0.04-0.9 10 3/uL Monocytes # (Auto) 0.7 LAB EO# 0.03-0.6 10 3/uL Eosinophils # (Auto) 0.3 LAB BA# 0.04-0.9 10 /uL Basophils # (Auto) 0.1 LAB IG# 10 3/uL Immature Gran# (Auto) 0.0 Performed By: #### CBC, PTINR, CMP12 #### [facility] [address] [place], [place] [id number] PROTIME INR Collected: 06/20/2017 Status: F Source: [place] 11:40 AM [facility] REPOSITORY TYPE CODE TESTS RESULT OUT OF REFERENCE UNITS RANGE LAB PT 9.8-12.7 sec Prothrombin Time $$ 12.2 Result Comment: Please note new reference range OF 03/18/2017 LAB INR 0.9-1.1 INR 1.1 Result Comment: Please note new reference range OF 03/18/2017 Performed By: #### CBC, PTINR, CMP12 #### [address] [address] COMPREHENSIVE METABOLIC Collected: 06/20/2017 Status: F Source: [place] PANEL 11:40 AM [facility] REPOSITORY TYPE CODE TESTS RESULT OUT OF REFERENCE UNITS RANGE LAB NA 136-145 mmol/L Sodium 141 LAB K 3.5-5.1 mmol/L Potassium 4.3 LAB CL 98-107 mmol/L Chloride $ 107 LAB CO2 21-32 mmol/L Carbon Dioxide $ 23 LAB AGAP Anion Gap 15.3 LAB BUN 7-18 mg/dL Blood Urea Nitrogen 16 LAB CRET 0.6-1.3 mg/dL Creatinine 0.6 LAB GFRAA GFR ( >60 Togolese) LAB GFRNAA GFR (Non >60 [place]ese) Result Comment: eGFR Units of measure: mL/min/1.73 m 2 LAB GLUF 74-106 mg/dL Glucose, Fasting High 110 LAB CA 8.5-10.1 mg/dL Calcium $ 9.8 LAB TBIL 0.2-1.0 mg/dL Total Bilirubin 0.8 LAB AST 15-37 U/L Aspartate Amino Transferase $ 26 LAB ALT 12-78 U/L Alanine Aminotransferase $ 39 LAB TP 6.4-8.2 g/dL Total Protein 7.3 LAB ALB 3.4-5.0 g/dL Albumin, Serum $ 4.0 LAB ALKP 50-136 U/L Alkaline Phosphatase $ 78 Performed By: #### CBC, PTINR, CMP12 #### [facility] [address] [place] [address] HISTORY AND PHYSICAL Observed: 06/20/2017 Status: F Source: [place] 11:33 AM [facility] Patient: LEISA MCKAY [address] [facility] MR#: [id number] [place], [place] [address] : 1975 Ord[address] : Dept: PDOC Loc: HORTENCIA History Physical Service Dt: 06/20/17 Report#: [id number] Adm Dt: 06/20/17 Dis Dt: History and Physical - Date of Service Date of Service: 06/20/17 - PCP/Chief Complaint Primary Care Physician: Salma Hough Chief Complaint: morbid obesity - Patient Information HPI/ROS/Exam: 41 yo female desire weight loss surgery.Patient has tried Weight Watcher's,Maura 's diet ,TOPS and diet pills.Patient states she has lost up to 50 lb and gained it all back plus extra weight.Patient newly diagnosed with YARELI.Has BMI 43.51 based on weight 115 kg and height 5'4 .Scheduled for laparoscopic sleeve gastrectomy. Neurological: Migraine Headache ENT/Eye: Deviated Septum Respiratory: CPAP, Sleep Apnea Other GI HX: EGD,ventral hernia repair , Female: Section/ Musculoskeletal: Orthopedic surgery (arthroscopic right knee surgeries), Osteoarthritis Other Integumentary Hx: removal cyst buttocks Endocrine: Diabetes (diet controlled) - Past Surgical History Surgical: cyst removal,hernia repair,arthroscopic right knee surgery c section,EGD no anesthesia complications - Social History Smoking Status: Former smoker Specific Quit Date: 2005 Does Patient Dip or Chew Tobacco: No Alcohol Use: No Use of Substances/Recreational Drugs: No - Family Health History Father Family Member Hx: Diabetes, Other (glaucoma) Mother Family Member Hx: COPD - Allergies Allergies/Adverse Reactions: Allergies No Known Allergies Allergy (Verified 06/20/17 11:12) - Medications Home Medications: Calcium Carbonate/Vitamin D3 [Calcium 500 mg Chewable Tablet] 1 each PO BID 06/04 [History Last Taken Unknown] Cyanocobalamin (Vitamin B-12) [Vitamin B12] 1,000 mcg PO DAILY 06/20/17 [ History Last Taken Unknown] Ergocalciferol [Vitamin D 50,000 UNITS] 1 cap PO Q7D@1000 06/20/17 [History Last Taken Unknown] Naproxen Sodium [Aleve] 220 mg PO DAILY 06/20/17 [History Last Taken 06/20/17] Pediatric Multivit Comb No.42 [Flintstones] 1 each PO BID 06/20/17 [History Last Taken 06/20/17] - Diagnostic Studies Lab Data: pending EKG: on chart - Subjective Narrative ROS: Review of Systems completed. 41 yo desire weight loss require surgical intervention - Vital Signs Vitals: 5'4 115 kg 36.2 78 16 147/92 97%RA - Objective Narrative Patient Exam: 41 yo is medically appropriate for scheduled procedure - Physical Exam Constitutional: Positive: alert, in no apparent distress, obese HEENT: Positive: head normal inspection Neck: Positive: Supple Adenopathy: Positive: No Regional Adenopathy Respiratory: Positive: normal lung sounds bilaterally Cardiovascular: Positive: regular rate, normal rhythm, +S1, +S2, other (no c/o chest pain) GI/Abdominal: Positive: soft, nontender, nondistended : Positive: deferred Extremities: Positive: no edema Neurological: Positive: alert, oriented X3 Integumentary: Positive: warm, dry Psychiatric: Positive: normal affect, normal mood - Assessment and Plan (1) Morbid obesity Status: Acute Plan: 06/20/17 11:34 07/02/17 laparoscopic sleeve gastrectomy - Comments Impression Comments: 06/20/17 12:02 41 yo scheduled for surgery with Dr Chow is medically appropriate for procedure.Has cardiac clearance from Dr Ochoa.Denies acute cardiac issues. Review and update is required if H P is greater than twenty- four hours. The patient was examined, the H P was reviewed. __ No Changes __ Changes noted below: Date/Time Attending Physician Observed: 06/20/2017 Status: F Source: [facility] BLOOD BANK REPORT 10:50 AM [facility] REPOSITORY RUN DATE: 06/20/17 [facility] LAB LIVE PAGE 1 RUN TIME: 1328 Specimen Inquiry PATIENT: LEISA MCKAY ACCT: [id number] LOC: [facility] U: [id number] AGE/SX: 41/F ROOM: RE07/02/[address]: Amanda Chow MD : 1975 BED: DIS: STATUS: PRE IN TLOC: SPEC #: [id number] ESTEBAN: 06/20/17-1049 STATUS: COMP REQ #: [id number] RECD: 06/20/17-[address]: Amanda Chow MD ENTERED: 06/20/17-[address]: SALMA HOUGH MD ORD PRODS: (NO ORDERED PRODUCTS) ORD TESTS: TS, ABO/Rh (RPT) COMMENTS: Spec expiration changed by TRAV on 06/20/17 Reason: PAT, EXPIRES 07/04/17 Test Result Flag Reference ABO/Rh Type > Blood Type B POS ABO/Rh (RPT) > Repeat ABO/Rh B POS > Antibody Screen NEGATIVE END OF REPORT Performed By: #### BLB #### [facility] [address], [place] [id number] H. PYLORI BREATH Collected: 06/07/2017 Status: F Source: [facility] TEST 10:09 AM [facility] REPOSITORY TYPE CODE TESTS RESULT OUT OF REFERENCE UNITS RANGE LAB BREAT(LOINC NEGATIVE ) H. PYLORI NEGATIVE BREATH TEST Result Comment: ANTIMICROBIALS, PROTON PUMP INHIBITORS AND BISMUTH PREPARATIONS ARE KNOWN TO SUPPRESS H. PYLORI AND INGESTION OF THESE WITHIN 2 WEEKS PRIOR TO PERFORMING THE BREATHTEK BUT MAY GIVE FALSE NEGATIVES. THE BREATHTEK UBT SHOULD NOT BE USED UNTIL 4 WEEKS OR MORE AFTER THE END OF TREATMENT FOR THE ERADICATION OF H. PYLORI, EARLIER POST-TREATMENT ASSESSMENT MAY GIVE FALSE NEGATIVES. Performed By: #### BREAT #### [facility] [address] [place] [address] DRUG SCREEN,URINE Collected: 05/16/2017 Status: F Source: [facility] 10:03 AM [facility] REPOSIT[facility] TYPE CODE TESTS RESULT OUT OF REFERENCE UNITS RANGE LAB AMPH(LOINC NEGATIVE ) AMPHETAMINES NEGATIVE Result Comment: CUTOFF LEVEL: 500 NG/ML Technical Operations Vice President drug: d-Methamphetamine Cross-reactivity has been reported with high concentrations of the following drugs: buproprion, chloroquine, chlorpromazine, ephedrine, mephentermine, fenfluramine, phentermine, phenylpropanolamine, pseudoephedrine, and propranolol. LAB JOHNY(LOINC) NEGATIVE URINE BARBITURATES NEGATIVE Result Comment: CUTOFF LEVEL:200 NG/ML Technical Operations Vice President drug: Secobarbital LAB BENZO(LOINC) NEGATIVE BENZODIAZEPINES NEGATIVE Result Comment: CUTOFF LEVEL:200 NG/ML Technical Operations Vice President drug: Lormetazepam LAB ART(LOINC) NEGATIVE CANNABINOIDS NEGATIVE Result Comment: CUTOFF LEVEL:50 NG/ML Technical Operations Vice President dru09-boc-qdibr6-THC-9carboxylic acid LAB COCAI(LOINC) NEGATIVE COCAINE METABOLITE NEGATIVE Result Comment: CUTOFF LEVEL: 150 NG/ML Technical Operations Vice President drug: Benzoylecgonine(cocaine metabolite) LAB METHD(LOINC) NEGATIVE METHADONE NEGATIVE Result Comment: CUTOFF LEVEL: 150 NG/ML Technical Operations Vice President drug: Methadone The metabolite A-vdgao-mgrsnrbmgrxrzt (LAAM) is not detected by this method in concentrations that would be found in the urine of patients on LAAM therapy. LAB OPIAT(LOINC) NEGATIVE OPIATES NEGATIVE Result Comment: CUTOFF LEVEL: 300 NG/ML Technical Operations Vice President Drug: Morphine This assay shows poor reactivity with synthetic opioids such as oxycodone and fentanyl. Cross-reactivity has been reported at high doses of meperidine. LAB OXYS2(LOINC) NEGATIVE OXYCODONE NEGATIVE Result Comment: CUTOFF LEVEL:100 NG/ML Technical Operations Vice President drug: Oxycodone This test will accurately detect both oxycodone and oxymorphone. LAB PCP(LOINC) NEGATIVE NEGATIVE PCP Result Comment: CUTOFF LEVEL: 25 NG/ML Technical Operations Vice President drug: Phencyclidine(PCP) Cross-reactivity has been reported with dextromethorphan. LAB DRCOM(LOINC) DRUG SCREEN COMMENT SEE BELOW Result Comment: POSITIVE CUTOFFS ARE BASED ON REACTIVITY WITH A PASTRYCOOK MEMBER OF DRUG CLASS. MEMBERS OF THE SAME CLASS OF DRUG MAY HAVE DIFFERING REACTIVITY WITH THE ASSAY AND THEREFORE MAY NEED TO BE PRESENT IN HIGHER CONCENTRATIONS TO GENERATE A POSITIVE RESULT. THESE TOXICOLOGY SCREENS PROVIDE UNCONFIRMED ANALYTICAL RESULTS SUITABLE FOR CLINICAL MANAGEMENT. A POSITIVE QUALITATIVE RESULT DOES NOT INDICATE OR MEASURE INTOXICATION. FOR QUANTITATIVE CONFIRMATORY TESTING OR PATHOLOGIST CONSULTATION, CALL LABORATORY AT [phone]. Performed By: #### DRUG3 #### [facility] [address] [place] [address] H. PYLORI BREATH Collected: 05/16/2017 Status: F Source: [facility] 10:03 AM [facility] REPOSITORY TYPE CODE TESTS RESULT OUT OF REFERENCE UNITS RANGE LAB BREAT(LOINC NEGATIVE ) H. PYLORI POSITIVE BREATH TEST Result Comment: IF REPEAT TESTING IS CLINICALLY INDICATED, TEST SHOULD BE ADMINISTERED FOUR WEEKS AFTER COMPLETION OF TREATMENT THERAPY. Performed By: #### BREAT #### [facility] [address] [place] [address] NICOTINEANDMETABOLITES,U Collected: Status: F Source: [facility] 05/16/2017 10:03 AM [facility] REPOSITORY TYPE CODE TESTS RESULT OUT OF RANGE REFERENCE UNITS LAB NICOU(LOINC ng/mL ) <2 NICOTINE,U Result Comment: Consistent with abstinence from nicotine-containing products for at least 2 weeks. INTERPRETIVE INFORMATION: Nicotine and Metabolites, Urine, Quantitative Methodology: Quantitative Liquid Chromatography-Tandem Mass Spectrometry Positive cutoff: Nicotine 2 ng/mL Cotinine 5 ng/mL 3-CZ-Vjtkhjbq 50 ng/mL Nornicotine 2 ng/mL Anabasine 3 ng/mL For medical purposes only; not valid for forensic use. This test is designed to evaluate recent use of nicotine-containing products. Passive and active exposure cannot be discriminated definitively, although a cutoff of 100 ng/mL cotinine is frequently used for surgery qualification purposes. For smoking cessation programs or compliance testing, the absence of expected drug(s) and/or drug metabolite(s) may indicate non-compliance, inappropriate timing of specimen collection relative to drug administration, poor drug absorption, diluted/adulterated urine, or limitations of testing. The concentration value must be greater than or equal to the cutoff to be reported as positive. Anabasine is included as a biomarker of tobacco use, versus nicotine replacement. Interpretive questions should be directed to the laboratory. Test developed and characteristics determined by [email or web address]. See Compliance Statement B: [employer] Performed by [email or web address], [address] [place] [id number] [email or web address], Matthew Morejon MD - Lab. Director LAB COTIU(LOINC) ng/mL COTININE,U <5 LAB 3OHCU(LOINC) ng/mL 0-AV-OKLGEZIT,U <50 LAB NORNU(LOINC) ng/mL NORNICOTINE,U <2 LAB ANABU(LOINC) ng/mL ANABASINE,U <3 Performed By: #### NICMU #### [facility] [address] [facility] [place] [address] CBC AND DIFFERENTIAL Collected: 05/16/2017 Status: F Source: [facility] 10:02 AM [facility] REPOSITORY TYPE CODE TESTS RESULT OUT OF REFERENCE UNITS RANGE LAB WBCR(LOINC 4.4 - 11.3 x10E9/L ) WBC 6.4 LAB NRBC(LOINC 0.0-0.0 /100 WBC ) NUCLEATED RBC 0.0 LAB RBCCT(LOIN 4.00 - 5.20 x10E12/L C) RBC 4.85 LAB HGB(LOINC) 12.0 - 16.0 g/dL HGB 13.3 LAB HCT(LOINC) 36.0 - 46.0 % HCT 40.9 LAB MCV(LOINC) 80 - 100 fL MCV 84 LAB MCHC2(LOIN 32.0 - 36.0 g/dL C) MCHC 32.5 LAB PLTCT(LOIN 150 - 450 x10E9/L C) PLT 374 LAB RDWCV(LOIN 11.5 - 14.5 % C) RDW-CV 14.0 LAB NEUT(LOINC 40.0 - 80.0 % ) % NEUTROPHIL 59.0 LAB IG(LOINC) 0.0 - 0.9 % % AUTOMATED 0.6 IMMATURE GRAN Result Comment: Percent differential counts (%) should be interpreted in the context of the absolute cell counts (cells/L). LAB LYMPH(LOINC) 13.0 - 44.0 % % LYMPHOCYTE 26.5 LAB MONO(LOINC) 2.0 - 10.0 % % MONOCYTE 7.2 LAB EOS(LOINC) 0.0 - 6.0 % % EOSINOPHIL 5.8 LAB BASO(LOINC) 0.0 - 2.0 % % BASOPHIL 0.9 LAB #NEUT(LOINC) 1.20 - 7.70 x10E9/L NEUTROPHIL 3.75 LAB #LYMP(LOINC) 1.20 - 4.80 x10E9/L LYMPHOCYTE 1.69 LAB #MONO(LOINC) 0.10 - 1.00 x10E9/L MONOCYTE 0.46 LAB #EOS(LOINC) 0.00 - 0.70 x10E9/L EOSINOPHIL 0.37 LAB #BASO(LOINC) 0.00 - 0.10 x10E9/L BASOPHIL 0.06 Performed By: #### CBCDF #### [facility] [address] [place] [address] VITAMIN D, 25-HYDROXY Collected: 05/16/2017 Status: F Source: [facility] 10:02 AM [facility] REPOSITORY TYPE CODE TESTS RESULT OUT OF RANGE REFERENCE UNITS LAB VTDOH(LOIN ng/mL C) Abnormal VITAMIN D, 22 25-HYDROXY Result Comment: . DEFICIENCY: < 20 NG/ML INSUFFICIENCY: 20-29 NG/ML OPTIMUM LEVEL: 30-80 NG/ML POSSIBLE TOXICITY: > 80 NG/ML THIS ASSAY ACCURATELY QUANTIFIES THE SUM OF VITAMIN D3, 25-HYDROXY AND VIT D2,25-HYDROXY. Performed By: #### VTDOH #### [facility] [address] [place] [address] TSH WITH REFLEX TO Collected: 05/16/2017 Status: F Source: [facility] FREE T4 IF ABNORMAL 10:02 [facility] REPOSITORY TYPE CODE TESTS RESULT OUT OF RANGE REFERENCE UNITS LAB TSH2(LOINC) 0.44 - 3.98 mIU/L Low TSH 0.23 Result Comment: TSH testing is performed using different testing methodology at [facility] than at other [facility]. Direct result comparisons should only be made within the same method. . Patients receiving more than 5 mg/day of biotin may have interference in test results. A sample should be taken no sooner than eight hours after previous dose. Contact [phone] for additional information. Performed By: #### THYDS #### [facility] [address] [place] [address] FOLATE, SERUM Collected: 05/16/2017 Status: F Source: [facility] 10:02 AM [facility] REPOSITORY TYPE CODE TESTS RESULT OUT OF RANGE REFERENCE UNITS LAB FOLA2(LOINC >5.0 ng/mL ) FOLATE, 8.3 SERUM Result Comment: Patients receiving more than 5 mg/day of biotin may have interference in test results. A sample should be taken no sooner than eight hours after previous dose. Contact [phone] for additional information. Performed By: #### FOLA2 #### [facility] [address] [place] [address] FERRITIN Collected: 05/16/2017 Status: F Source: [facility] 10:02 [facility] REPOSITORY TYPE CODE TESTS RESULT OUT OF REFERENCE UNITS RANGE LAB TIMMY(LOINC 8 - 150 ug/L ) FERRITIN 64 Performed By: #### TIMMY #### [facility] [address] [place] [id number] IRON + TIBC Collected: 05/16/2017 Status: F Source: [facility] 10:02 [facility] REPOSITORY TYPE CODE TESTS RESULT OUT OF REFERENCE UNITS RANGE LAB IRON(LOINC 35 - 150 ug/dL ) IRON 75 LAB TIBC(LOINC 240 - 445 ug/dL ) TIBC 389 LAB %SAT(LOINC 25 - 45 % ) Low % SATURATION 19 Performed By: #### IRONT #### [facility] [address] [place] [address] COMPREHENSIVE PANEL Collected: 05/16/2017 Status: F Source: [facility] 10:02 [facility] REPOSITORY TYPE CODE TESTS RESULT OUT OF REFERENCE UNITS RANGE LAB GLU(LOINC) 74 - 99 mg/dL GLUCOSE High 112 LAB SOD(LOINC) 136 - 145 mmol/L SODIUM 138 LAB K(LOINC) 3.5 - 5.3 mmol/L POTASSIUM 4.1 LAB CHLOR(LOIN 98 - 107 mmol/L C) CHLORIDE 106 LAB BIC(LOINC) 21 - 32 mmol/L BICARBONATE 24 LAB ANGAP(LOIN 10 - 20 mmol/L C) ANION GAP 12 LAB UREA(LOINC 6 - 23 mg/dL ) UREA NITROGEN 11 LAB CREA(LOINC 0.50 - 1.05 mg/dL ) CREATININE 0.56 LAB GFRFN(LOIN >60 mL/min/1.7 C) 3m2 GFR-NON AM. >60 LAB GFRAA(LOIN >60 mL/min/1.7 C) 3m2 GFR- AM. >60 Result Comment: CALCULATIONS OF ESTIMATED GFR ARE PERFORMED USING THE MDRD STUDY EQUATION FOR THE IDMS-TRACEABLE CREATININE METHODS. CLIN CHEM 2007;53:766-72 LAB CA(LOINC) 8.6 - 10.6 mg/dL CALCIUM 9.3 LAB ALB(LOINC) 3.4 - 5.0 g/dL ALBUMIN 4.1 LAB AP(LOINC) 33 - 110 U/L ALKALINE PHOSPHATASE 68 LAB TP(LOINC) 6.4 - 8.2 g/dL TOTAL PROTEIN 6.7 LAB AST(LOINC) 9 - 39 U/L AST 13 LAB TBILI(LOINC) 0.0 - 1.2 mg/dL BILIRUBIN,TOTAL 0.5 LAB ALT(LOINC) 7 - 45 U/L ALT 21 Result Comment: Patients treated with Sulfasalazine may generate falsely decreased results for ALT. Performed By: #### CMP #### [facility] [address] [place] [address] MAGNESIUM Collected: 05/16/2017 Status: F Source: [facility] 10:02 AM [facility] REPOSITORY TYPE CODE TESTS RESULT OUT OF REFERENCE UNITS RANGE LAB MG(LOINC) 1.60 - 2.40 mg/dL MAGNESIUM 2.00 Performed By: #### MG #### [facility] [address] [place] [address] LIPID PANEL (CORONARY Collected: 05/16/2017 Status: F Source: [facility] RISK 2) 10:02 AM [facility] REPOSITORY TYPE CODE TESTS RESULT OUT OF REFERENCE UNITS RANGE LAB CHOL(LOINC 0 - 199 mg/dL ) CHOLESTEROL 146 Result Comment: . AGE DESIRABLE BORDERLINE HIGH HIGH 0-19 Y 0 - 169 170 - 199 >/= 200 20-24 Y 0 - 189 190 - 224 >/= 225 >24 Y 0 - 199 200 - 239 >/= 240 All ranges are based on fasting samples. Specific therapeutic targets will vary based on patient-specific cardiac risk. . Pediatric guidelines reference:Pediatrics 2011, 128(S5). Adult guidelines reference: NCEP ATPIII Guidelines, ALEX 2001, 258:7266-97 . Venipuncture immediately after or during the administration of Metamizole may lead to falsely low results. Testing should be performed immediately prior to Metamizole dosing. LAB HDL(LOINC) mg/dL HDL-CHOLESTEROL 57.3 Result Comment: . AGE VERY LOW LOW NORMAL HIGH 0-19 Y < 35 < 40 40-45 ---- 20-24 Y ---- < 40 >45 ---- >24 Y ---- < 40 40-60 >60 . LAB CHHDL(LOINC) CHOLESTEROL/HDL RATIO 2.5 Result Comment: REF VALUES DESIRABLE < 3.4 HIGH RISK > 5.0 LAB LDLF(LOINC) 0 - 99 mg/dL LDL 58 Result Comment: . NEAR BORD AGE DESIRABLE OPTIMAL HIGH HIGH VERY HIGH 0-19 Y 0 - 109 --- 110-129 >/= 130 ---- 20-24 Y 0 - 119 --- 120-159 >/= 160 ---- >24 Y 0 - 99 100-129 130-159 160-189 >/=190 . LAB VLDL(LOINC) 0 - 40 mg/dL VLDL 31 LAB TRIG(LOINC) 0 - 149 mg/dL TRIGLYCERIDES High 155 Result Comment: . AGE DESIRABLE BORDERLINE HIGH HIGH VERY HIGH 0 D-90 D 19 - 174 ---- ---- ---- 91 D- 9 Y 0 - 74 75 - 99 >/= 100 ---- 10-19 Y 0 - 89 90 - 129 >/= 130 ---- 20-24 Y 0 - 114 115 - 149 >/= 150 ---- >24 Y 0 - 149 150 - 199 200- 499 >/= 500 . Venipuncture immediately after or during the administration of Metamizole may lead to falsely low results. Testing should be performed immediately prior to Metamizole dosing. Performed By: #### LIPID #### [facility] [address] [place] [id number] PARATHYROID Collected: 05/16/2017 Status: F Source: [facility] HORMONE,INTACT 10:02 [facility] REPOSITORY TYPE CODE TESTS RESULT OUT OF REFERENCE UNITS RANGE LAB PTH(LOINC) 18.5 - 88.0 pg/mL PARATHYROID HORMONE,INTACT 32.8 Result Comment: Note new reference range as of 03/31/2017. Patients receiving more than 5 mg/day of biotin may have interference in test results. A sample should be taken no sooner than eight hours after previous dose. Contact [phone] for additional information. Performed By: #### PTH #### [facility] [address] [place] [id number] THYROXINE,FREE Collected: 05/16/2017 Status: F Source: [facility] 10:02 AM [facility] REPOSITORY TYPE CODE TESTS RESULT OUT OF RANGE REFERENCE UNITS LAB T4FRE(LOINC 0.78 - 1.48 ng/dL ) 1.23 THYROXINE,FR EE Result Comment: Thyroxine Free testing is performed using different testing methodology at [facility] than at other [facility]. Direct result comparisons should only be made within the same method. . Patients receiving more than 5 mg/day of biotin may have interference in test results. A sample should be taken no sooner than eight hours after previous dose. Contact [phone] for additional information. Performed By: #### T4FRE #### [facility] [address] [place] [address] HEMOGLOBIN A1C Collected: 05/16/2017 Status: F Source: [facility] 10:02 [facility] REPOSITORY TYPE CODE TESTS RESULT OUT OF RANGE REFERENCE UNITS LAB HBA1C(LOINC % ) HGB A1C 5.9 Result Comment: Diagnosis of Diabetes-Adults Non-Diabetic: < or = 5.6% Increased risk for developing diabetes: 5.7-6.4% Diagnostic of diabetes: > or = 6.5% . Monitoring of Diabetes Age (y) Therapeutic Goal (%) Adults: >18 <7.0 Pediatrics: 13-18 <7.5 7-12 <8.0 0- 6 7.5-8.5 [place] [employer]. Diabetes Care 33(S1), Feb 2009. LAB ESAVG(LOINC) MG/DL EST.AVG.GLUCOSE 123 Performed By: #### HBA1E #### [facility] [address] [place] [address] VITAMIN A Collected: 05/16/2017 Status: F Source: [facility] 10:02 [facility] REPOSITORY TYPE CODE TESTS RESULT OUT OF REFERENCE UNITS RANGE LAB VTA(LOINC) 20-65 ug/dL High VITAMIN A 71 Result Comment: Effective May 19, 2017 Vitamin A, Serum will be changing to the LC/MS-MS methodology. The reference interval will be changing to: < 6 years Not Estab. 6 - 11 years 22.8 - 54.4 12 - 19 years 28.9 - 75.7 20 - 39 years 31.2 - 89.1 40 - 59 years 33.1 - 100.0 >59 years 36.4 - 108.0 Performed By: #### VTA #### [facility] [address] [place], [place] [id number] VIT B1-THIAMINE WHOLE Collected: 05/16/2017 Status: F Source: [facility] 10:02 AM [facility] REPOSITORY TYPE CODE TESTS RESULT OUT OF RANGE REFERENCE UNITS LAB VTB1W(LOINC 70-180 nmol/L ) VIT 139 B1-THIAMINE WHOLE BLD Result Comment: INTERPRETIVE INFORMATION: Vitamin B1, Whole Blood This assay measures the concentration of thiamine diphosphate (TDP), the primary active form of vitamin B1. Approximately 90 percent of vitamin B1 present in whole blood is TDP. Thiamine and thiamine monophosphate, which comprise the remaining 10 percent, are not measured. Test developed and characteristics determined by [email or web address]. See Compliance Statement B: [employer]/ Performed by [email or web address], [address] [place] [id number] www.[employer], Matthew Morejon MD - Lab. Director Performed By: #### VTB1W #### [email or web address] [address] [place] [id number] COPPER Collected: 05/16/2017 Status: F Source: [facility] 10:02 [facility] REPOSITORY TYPE CODE TESTS RESULT OUT OF REFERENCE UNITS RANGE LAB COPPR(LOINC 72-166 ug/dL ) COPPER 124 Result Comment: Detection Limit = 5 Performed By: #### COPPR #### [facility] [address] [place], [place] [id number] ZINC Collected: 05/16/2017 Status: F Source: [facility] 10:02 [facility] REPOSITORY TYPE CODE TESTS RESULT OUT OF RANGE REFERENCE UNITS LAB ZINC(LOINC) 56-134 ug/dL ZINC 101 Result Comment: Detection Limit = 5 Performed By: #### ZINC #### [facility] [address] [place], [place] [id number] GASTROINTESTINAL ENDOSCOPY Observed: 05/07/2017 Status: F Source: [place] 9:02 AM [facility] Dept: Diagnostic Att. DrEphraim: Amanda Chow MD Gastrointestinal Endoscopy Loc: ENDO Report #: [id number] Adm Dt: 05/07/17 Dis Dt: Patient Name: Leisa Mckay Procedure Date: 05/07/2017 7:53 AM Date of : 1975 Admit Type: Outpatient Ethnicity: Race: Unknown Attending MD: Amanda Chow MD Procedure: Upper GI endoscopy Indications: Heartburn, Preoperative assessment for bariatric surgery to treat morbid obesity, obesity Providers: Amanda Chow MD (Doctor) , Radha Singh RN (Nurse) , Luz Casiano LPN (Nurse) Referring: Provider Care Team: Salma Hough MD Medicines: Fentanyl 125 micrograms IV, Midazolam 5 mg IV Complications: No immediate complications. Procedure: Pre-Anesthesia Assessment: - Prior to the procedure, a History and Physical was performed, and patient medications and allergies were reviewed. The patient is competent. The risks and benefits of the procedure and the sedation options and risks were discussed with the patient. All questions were answered and informed consent was obtained. Patient identification and proposed procedure were verified by the physician, the nurse and the pest control chemical technician in the procedure room in the endoscopy suite. Mental Status Examination: alert and oriented. Airway Examination: normal oropharyngeal airway and neck mobility. Respiratory Examination: clear to auscultation. CV Examination: normal. Prophylactic Antibiotics: The patient does not require prophylactic antibiotics. Prior Anticoagulants: The patient has taken no previous anticoagulant or antiplatelet agents. ASA Grade Assessment: II - A patient with mild systemic disease. After reviewing the risks and benefits, the patient was deemed in satisfactory condition to undergo the procedure. The anesthesia plan was to use moderate sedation / analgesia (conscious sedation). Immediately prior to administration of medications, the patient was re-assessed for adequacy to receive sedatives. The heart rate, respiratory rate, oxygen saturations, blood pressure, adequacy of pulmonary ventilation, and response to care were monitored throughout the procedure. The physical status of the patient was re- assessed after the procedure. After obtaining informed consent, the endoscope was passed under direct vision. Throughout the procedure, the patient's blood pressure, pulse, and oxygen saturations were monitored continuously. The endoscope was introduced through the mouth, and advanced to the second part of duodenum. The upper GI endoscopy was accomplished without difficulty. The patient tolerated the procedure well. Findings: The exam of the esophagus was otherwise normal. Patchy mildly erythematous mucosa without bleeding was found in the gastric antrum. Estimated blood loss was minimal. Biopsies were taken with a cold forceps for Helicobacter pylori testing. The ampulla, duodenal bulb, first portion of the duodenum and second portion of the duodenum were normal. Moderate Sedation: Moderate (conscious) sedation was administered by the endoscopy nurse and supervised by the endoscopist. The following parameters were monitored: oxygen saturation, heart rate, blood pressure, respiratory rate, EKG, adequacy of pulmonary ventilation, and response to care. Total physician intraservice time was 15 minutes. Impression: - Erythematous mucosa in the antrum. Biopsied. - Normal ampulla, duodenal bulb, first portion of the duodenum and second portion of the duodenum. Recommendation: - Patient has a contact number available for emergencies. The signs and symptoms of potential delayed complications were discussed with the patient. Return to normal activities tomorrow. Written discharge instructions were provided to the patient. - Discharge patient to home (ambulatory). - Return to Bariatric clinic as previously scheduled. - Telephone my office for pathology results in 1 week. Procedure Code(s): --- Professional --- 23068, Esophagogastroduodenoscopy, flexible, transoral; with biopsy, single or multiple Diagnosis Code(s): --- Professional --- K31.89, Other diseases of stomach and duodenum R12, Heartburn Z01.818, Encounter for other preprocedural examination E66.01, Morbid (severe) obesity due to excess calories CPT copyright 2016 [employer]. All rights reserved. The codes documented in this report are preliminary and upon criminal justice program director review may be revised to meet current compliance requirements. Attending Participation: I personally performed the entire procedure. MD Amanda Miller MD 05/07/2017 9:02:01 AM This report has been signed electronically. Number of Addenda: 0 Note Initiated On: 05/07/2017 7:53 AM Total Procedure Duration Time 0 hours 7 minutes 58 seconds 0902 GLUCOSE, POINT OF Collected: 05/07/2017 Status: F Source: [facility] 7:43 AM [facility] REPOSITORY TYPE CODE TESTS RESULT OUT OF REFERENCE UNITS RANGE LAB POCGLU 80-110 mg/dL High Glucose, 114 Point of Care Performed By: #### POCGLU #### [facility] [address] [place] [address] SLEEP STUDY REPORT Observed: 04/14/2017 Status: F Source: [facility] 11:26 AM [facility] REPOSITORY SLEEP [facility]ENTER AT [facility] CPAP/Bi-LEVEL TITRATION REPORT: PATIENT NAME: Leisa Mckay DATE OF : 1975 DATE OF STUDY: 04/04/2017 TEST #: [id number] REFERRING PHYSICIAN: Dr. Hough INTERPRETING PHYSICIAN: Etta Conteh MD MEDICATIONS: See the list. INDICATION FOR STUDY: The patient has documented obstructive sleep apnea, comes in for a CPAP titration study. The patient's apnea- hypopnea index was 15.9 per hour, and during REM sleep the apnea-hypopnea index was 53.3 per hour. PHOTO MASK INSPECTOR COMMENTS: The patient's sleep onset and REM onset were decreased. The patient was started on CPAP at 4 cm and the pressures were increased up to 8 cm. The patient slept in supine, left and right side position. The cardiac rhythm was sinus. SUMMARY: The total recording time was 6.6 hours and total sleep time was 6.2 hours with a sleep efficiency of 94.7%. The patient's sleep onset was decreased at 3.5 minutes and REM latency was decreased at 45.5 minutes. All stages of sleep noted during this study with a REM duration of 77.5 minutes. The patient was started on CPAP at 4 cm and pressures increased up to 8 cm. At a CPAP pressure of 8 cm, the apnea-hypopnea index was 0.9 and the lowest arterial oxygen saturation noted was 89%. The patient's cardiac rhythm was sinus without any arrhythmias. No significant restless legs or periodic limb movements noted during sleep. CONCLUSION: 1. Study showed normal decreased sleep onset and normal sleep efficiency. All stages of sleep noted during the study. 2. CPAP therapy showed significant improvement in patient's respiratory events, arterial oxygen desaturation and snoring. The optimum CPAP pressure noticed was 8 cm (small cushion, medium frame DreamWear Gel mask with pressure relief used for this study). 3. The patient's cardiac rhythm was sinus without any arrhythmias. 4. No significant restless legs or periodic limb movements noted during sleep. RECOMMENDATION: 1. Weight reduction (patient's BMI is 38.8 and ideal BMI is less than 25). 2. Improve sleep habits. 3. The patient may be tried on CPAP therapy at 8 cm (small cushion, medium frame DreamWear Gel mask was used for the study). 4. Follow up with Dr. Hough or the Sleep Clinic at for further recommendations. ETTA CONTEH MD BE/Leodan /[id number] ALLERGIES ALLERGIES DATE TYPE / CODE NAME / CODE REACTION SEVERITY SOURCE 03/09/2018 Drug No Known Unknown [facility] Allergy/416 Allergies/P76527 Hospital 067055(SNOM 0388(RXNORM) Repository ED CT) Drug NO KNOWN [facility] Class/72309 ALLERGIES Main [place] 1003(SNOMED Repository CT) ENCOUNTERS ENCOUNTERS ADMIT/DISCHARGE ACCOUNT NUMBER ADMITTING ENCOUNTER LOCATION SOURCE CLASS 03/09/2018/03/09/19 [id number] Emergency Maddie Maddie [address] [place] [address] ding:ED Repository 01/22/2018 [id number] Ambulatory [facility] Repository 12/25/2017 [id number] Emergency [address] [place] [address] EDRoom: System [id number]: Repository [id number] 12/10/2017 [id number] Ambulatory 9417 [facility] Repository 11/18/2017 [id number] Ambulatory 8006 [facility] Repository 09/25/2017 [id number] Ambulatory PCGBuilding: [facility] Repository 09/18/2017/09/23/19 [id number] Ambulatory [address] Main [place] Repository 09/16/2017/09/17/19 [id number] Ambulatory [address] Other [place] Repository 09/04/2017 [id number] Ambulatory PCGBuilding: [facility] Repository 08/14/[id number] Geraldo Ambulatory [facility] Repository 07/10/2017 [id number] Ambulatory PCGBuilding: [facility] Repository 07/03/2017 [id number] Ambulatory [address] [place] [address] Repository 07/02/2017/07/04/19 [id number] Geraldo, Inpatient PCGBuilding: [place] 18 Mujjahid Encounter 2JNTRoom: [facility] 218Bed: [address] [place] [address] Repository 07/02/2017 [id number] Ambulatory [address] [place] [address] Repository 06/20/2017 [id number] Ambulatory PCGBuilding: [facility] Repository 06/20/2017 [id number] Ambulatory PCGBuilding: [facility] Repository 06/20/2017 [id number] Ambulatory [address] [place] [address] Repository 06/13/2017 [id number] Ambulatory PCGBuilding: [facility] Repository 05/12/2017 [id number] Ambulatory PCGBuilding: [facility] Repository 05/08/2017 [id number] Ambulatory [facility] Repository 05/08/[id number] Don Ambulatory [facility] Repository 05/07/2017 [id number] Ambulatory [address] [place] [address] Repository 05/07/2017 [id number] Ambulatory PCGBuilding: [facility] Repository 04/04/2017/04/04/19 [id number] Ambulatory 72446Gcgzjaf [facility] 18 g:[facility] Repository 04/04/2017 [id number] Ambulatory PCGBuilding: [facility] Repository 03/27/2017/03/27/19 [id number] Ambulatory 25226Kvneagt [facility] 18 g:[facility] Repository 03/20/2017/03/20/19 [id number] YADY PANDEY, Ambulatory 95251Otdfaax [facility] 18 BABU g:[facility] Repository PAYERS PAYERS ENCOUNTER GUARANTOR PAYER SUBSCRIBER SOURCE 03/09/2018 LEISA [id number] Insurance:Samantha GARRETT [facility] Number: [place], [place] [id number] Repository [address]Iwg: Date:[id number], [place] () [address]ZT: 03/09/2018 Secondary Insurance:[facility] LEISA Perkins COMMUNITY PLANPolicy NAWROCKIDOB: Community Number: [id number] Hospital [id number] Repository Date:[id number] [address] [address]GY: 03/09/2018 Tertiary Insurance:SELF NOT GIVENUNK [facility] INSURANCEPolicy Community Number: Effective Hospital Date:2018-03-09 Repository 01/22/2018 [facility] NAWROCKIDOB: Insurance:AnthemPolicy NAWROCKIDOB: Hospitals Number: [id number] Repository [place] [id number] [place], [place] Date:Plan Name:[place], [place] [address]Rqw: [address]Vpk: [phone] () (HP) 01/22/2018 [facility] Insurance:United NAWROCKIDOB: [facility] [id number] Repository PlanPolicy Number: [place] [id number] [place], [place] Date:Plan Name:[facility] [address]Iyb: 419) [address] [place] [address] [phone] (HP) 629[address]AH: 12/25/2017 [facility] Primary Insurance:[place] Leisa A [facility] NawrockiDOB: Blue Cross Blue NawrockiDOB: System ShieldPolicy Number: [id number] Repository Bong Effective Date: [place], [place] [address]Dgp: (HP) 12/25/2017 Secondary [facility] A [facility] Health Insurance:United NawrockiDOB: System HealthcarePolicy Number: [id number] Repository Effective Date: 12/10/2017 [facility] NAWROCKIDOB: Insurance:CommercialPolic NAWROCKIDOB: Hospitals y Number: [id number] Repository [place] [id number] [address] [place] [address] Date:Plan Name:[facility] [id number]: (HP) 12/10/2017 [facility] Insurance:[place] HospitalB: [facility] [id number] Repository PlanPolicy Number: [place] [id number], [place] Date:Plan Name:[facility] [address]Jbr: (419) [address] [place] [address] [place] [phone] (HP) [address]CN: 11/18/2017 [facility] Insurance:[facility] NAWROCKIDOB: [facility] NAWROCKIDOB: [facility] PlanPolicy Number: [id number] Repository [place] [id number], [place] Date:Plan Name:[place], [place] [address]Saw: [address] [place] [address] [place] [address]Yhl: [phone]: [phone] (HP) (HP) 09/25/2017 [facility] Insurance:[facility] CenterOCKI5462 COMMERCIALPolicy Number: [facility]IX HOSPITALB: General [place], [id number] [facility] [address]Lwq: Date:2017-02-17 - 2 [place], Repository 2017-06-17 [place] [address]Kjq: () (HP) 09/25/2017 [facility] Insurance:[facility]: General [facility] PLAPolicy [id number] Hospital Number: 2 [place], Repository [id number] [place] [address]Lzs: Date:[facility] [place], [place] [address]VB: [phone] 09/04/2017 [facility]462 Insurance:[facility] NAWROCKIDOB: General [place] RDMEDINA, E COMMUNITY PLAPolicy [id number] [facility] [place] [address]Myl: Number: 2 [address] [place], Repository [id number] w[place] [address]Zwz: (HP) Date:[address], [place] [address]TA: [phone] ([phone] 09/04/2017 Secondary [facility] Insurance:ANTHEM NAWROCKIDOB: General COMMERCIALPolicy Number: [id number] [facility] [id number] 2 [place], Repository Date: [place] [address]Xar: (HP) 08/14/2017 [facility] Primary Insurance:[facility] CenterB: [facility] CenterOCKIDOB: [facility] PlanPolicy Number: [id number] Repository [place] [id number] [place] Date:Plan Name:[facility] [place], [place] [address]Slg: [address] [place] [address]Quf: [phone]: [phone] (HP) (HP) 07/10/2017 [facility]I5462 Insurance:[facility] NAWROCKIDOB: General [place] [facility] PLAPolicy [id number] [facility] [place] [address]Qaw: Number: 2 [address] [place], Repository [id number] [place] [address]Uhc: (HP) Date:[address], [place] [address]VS: [phone] ([phone] 07/10/2017 Secondary [facility] Insurance:ANTHEM NAWROCKIDOB: General COMMERCIALPolicy Number: [id number] [facility] HospitalSOE155W36785Juyytrhtb 2 [place], Repository Date: [place] [address]Ykt: (HP) 07/03/2017 [facility] Primary Insurance:United [employer] NAWROCKIDOB: Healthcare Community NAWROCKIDOB: Hospitals PlanPolicy Number: [id number] Repository [place], [id number] 2 [place], [place] [address]Sjl: Date:Plan Name:[place] [address]Rva: Box SANDE[address] Pandey (HP) [address]XV: (HP) 07/02/2017 [facility] [id number] Insurance:[facility] NAWROCKIDOB: General [place] [facility] PLAPolicy [id number] [facility] [place] [address]Reo: Number: 2 [place], Repository [id number] [place] [address]Zko: (HP) Date:[address], [place] [address]GL: [phone] ([phone] 07/02/2017 [facility] Insurance:ANTHEM NAWROCKIDOB: [facility] COMMERCIALPolicy Number: [id number] [facility] [id number] 2 [place], Repository Date: [place] [address]Gpz: () 07/02/2017 [facility] NAWROCKIDOB: Insurance:AnthemPolicy NAWROCKIDOB: [facility] Number: [id number] Repository [place], [id number] 2 [place], [place] [address]Gws: Date:Plan Name:Health [place] [phone] (HP) 07/02/2017 [facility] Insurance:United NAWROCKIDOB: Hospitals [facility] Community [id number] Repository PlanPolicy Number: [address], [id number] [place] [address]Vbf: Date:Plan Name:HealthP O [address]ey (HP) [address]YW: 06/20/2017 [facility] Primary Insurance:[facility] CenterOCKI5462 COMMERCIALPolicy Number: NAWROCKIDOB: [facility] BRYON, [id number] [facility] [place] [address]Zji: Date: 2 [place], [place]ository [place] [address]Yhn: (MB) (HP) 06/20/2017 Secondary [facility] Insurance:[facility] NAWROCKIDOB: General [facility] [id number] Hospital Number: 2 [facility], Repository [id number] [place] [address]Tpn: Date:[address] [place] [address]UZ: [phone] 06/20/2017 [facility] Primary Insurance:SP = Not GivenAvita Health System Galion HospitalOCKI5462 PATIENT General [facility] [place] [address]Omf: Number: Effective Date: Repository (HP) 06/20/2017 [facility] Primary Insurance:[facility] NAWROCKIDOB: [facility] HospitalB: [facility] PlanPolicy Number: [id number] Repository [place] [id number] 2 [place], [place] Date:Plan Name:[place], [place] [address]Hki: [address] [address]Pky: [phone]: [phone] (HP) (HP) 06/13/2017 [place] Primary Insurance:[facility] CenterOCKI5462 COMMERCIALPolicy Number: NAWROCKIDOB: [facility] BRYONAVENIR BEHAVIORAL HEALTH CENTER AT [id number] [facility] [place] [address]Bdn: Date: [address] [place], [place]ository [place] [address]Sjd: (XY) (HP) 06/13/2017 Secondary [facility] Insurance:UNITEDHEALTHCAR NAWROCKIDOB: General [facility]AREPol[facility] [id number] Hospital Number: 2 [place] [place], Repository [id number] [place] [address]Taj: Date: [address], [place] [address]QG: [phone] 05/12/2017 [facility] [id number] Insurance:UNITEDHEALTHCAR NAWROCKIDOB: [facility] CenterIBIS[facility]le[facility] [id number] [facility] [place] [address]Wti: Number: 2 [place], Repository [id number] w[place] [address]Bxo: (HP) Date: [address] [place] [address], [place] [address]BE: [phone] 05/08/2017 [facility] NAWROCKIDOB: Insurance:AnthemPolicy NAWROCKIDOB: [facility] Number: [id number] Repository [id number] 2 [place], [place] Date:2017-11-17 [place] [id number]Gkd: 1787-02-37Ygad Name:Health () 05/08/2017 [facility] Insurance:United NAWROCKIDOB: [facility] [id number] Repository PlanPolicy Number: W[place] [id number] AVECREST[place], [place] Date:Plan Name:[facility] [address]Cdk: (483) [address] [place] [address] [phone] () [address]CP: 05/08/2017 [facility] NAWROCKIDOB: Insurance:AnthemPolicy NAWROCKIDOB: Hospitals Number: [id number] Repository [facility] CENTERREVACARONDELET ST. JOSEPH'S [id number] 2 [place], [place] Date:Plan Name:Health [place] [id number]: (HP) 05/08/2017 [facility] Insurance:United NAWROCKIDOB: [facility] Healthcare Community [id number] Repository PlanPolicy Number: Ling G[place], [id number] [place] [id number]: Date:Plan Name:HealthP O [address] [place] [address] [place] (HP) [address]RG: 05/07/2017 [facility] NAWROCKIDOB: Insurance:AnthemPolicy NAWROCKIDOB: [facility] Number: [id number] Repository [facility] [id number] 2 [place], [place] Date:Plan Name:Health [place] [id number]: (HP) 05/07/2017 [facility] Insurance:United NAWROCKIDOB: [facility] [id number] Repository PlanPolicy Number: W[place] [id number] [place], [place] Date:Plan Name:HealthP O [address]Jsc: (316) [address] [place] [address] [place] [phone] () 25[address]UB: 05/07/2017 [facility] Insurance:[facility] [id number] COMMERCIALPolicy Number: NAWROCKIDOB: General [place], [id number] [facility] [place] [address]Ahu: Date:2017-02-17 - 2 [place], Repository 2017-06-17 [place] [address]Mnt: (CE) (HP) 05/07/2017 [facility] Insurance:[facility] NAWROCKIDOB: General [facility] PLAPolicy [id number] Hospital Number: 2 [place], Repository [id number] [place] [address]Myz: Date:[facility] [address] [place] [address], [place] [address]ZQ: [phone] 04/04/2017 [facility] Insurance:[facility] [id number] COMMERCIALPolicy Number: NAWROCKIDOB: General [place], [id number] [id number] [facility] [place] [address]Ggg: Date: 2 [place], [place] [address]Nco: () () 04/04/2017 Secondary [facility] Insurance:[facility] NAWROCKIDOB: General [facility] PLAPolicy [id number] Hospital Number: 2 [place], Repository [id number] w[place] [address]Xku: Date:[facility] [address], [place] [address]MQ: [phone]
== END 2018-03-09 17:25 | disposition home or self-care (01) ==
PROVIDERS: Emergency Provider Emergency Medicine; Family Provider Pediatrics; PCP Pediatrics
DX: S90.32XA Contusion of left foot, initial encounter (principal); W22.03XA Walked into furniture, initial encounter; Y93.9 Activity, unspecified; Y92.9 Unspecified place or not applicable; Y99.9 Unspecified external cause status
CPT/HCPCS: 73630; 96372; 99282

== ENCOUNTER 2018-11-07 16:51 | Emergency (ER) | payer BC, MEDICAID, SELFPAY ==
[2018-11-07 16:52] VITALS: BP 160/94; PULSE 63; RESP 13; TEMP 36.6; O2SAT 100; BMI 35.9
--- NOTE | 2018-11-07 17:02 | EKG12_ITS ---
Test Reason : CP Blood Pressure : / mmHG Vent. Rate : 060 BPM Atrial Rate : 060 BPM P-R Int : 162 ms QRS Dur : 082 ms QT Int : 450 ms P-R-T Axes : 046 049 035 degrees QTc Int : 450 ms Normal sinus rhythm Normal ECG Confirmed by OSEI PANDEY, BARBARA ([id number]), metropolitan editor ABELINO LERNER ([id number]) on 11/09/2018 9:01:37 AM Referred By: TRINA Confirmed By:BARBARA FRANZ MD
--- NOTE | 2018-11-07 17:02 | RAD_ITS ---
STUDY: X-RAY CHEST REASON FOR EXAM: Female, 42 years old. Chest heaviness and headache and dizziness TECHNIQUE: PA and lateral views of the chest. COMPARISON: None. FINDINGS: The lungs are clear and expanded. There is no demonstrated pleural abnormality. Normal size heart. Normal mediastinum and eusebia. Normal visualized pulmonary arteries. Normal visualized aortic arch and descending thoracic aorta. Normal visualized thoracic spine. Normal visualized ribs, clavicles, and shoulders. There is no demonstrated abnormality of the visualized soft tissue structures of the upper abdomen. RAD/Chest PA and Lateral IMPRESSION: Normal x-ray examination of the chest. Electronically Signed: Kendell Benites DO at 17:45 EDT Tel , Service support ,
--- NOTE | 2018-11-07 17:02 | ED.VIS.GEN ---
History of Present Illness Chief Complaint: Chest Pain Informant: Patient Onset: Today Context: Gradual Onset Timing: Waxes and wanes Current Severity: Mild Maximum Severity: Moderate Narrative: Patient presents with generalized headache and chest pressure that started approximately 4 hours ago. 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 About 4 hours ago she noted generalized headache and has developed chest pressure. She admits that she has not been drinking much today and has been sitting out in the heat. Her gave her some to drink short before arrival and she felt like it hurt when she swallowed. She denies significant cardiac history. She has never had a stress test. She does not have significant family cardiac history. Past Medical History - Allergies and Home Meds Allergies/Adverse Reactions: Allergies No Known Allergies Allergy (Verified 11/07/18 16:51) Primary Care Physician: Salma Hough MD [Primary Care Provider] - Prior records reviewed: Yes Past Medical History: - - Reviewed Lives: With Family Smoking Status: Former smoker Review of Systems General: Denies: Chills, Fever Eyes: Denies: Visual changes - bilaterally ENT: Denies: Bilateral ear pain Cardiovascular: Reports: Chest pain. Denies: Palpitations, Heart racing Respiratory: Denies: Dyspnea, Cough Gastrointestinal: Reports: Nausea. Denies: Abdominal pain, Vomiting Musculoskeletal: Denies: Neck pain, Back pain Skin: Denies: Wounds Neurological: Reports: Headache. Denies: Weakness, Parasthesia Hematologic: Denies: Easy bruising Allergy: Denies: Uticaria Physical Exam Vital Signs/Narrative: Vital Signs Temp Pulse Resp BP Pulse Ox 11/07/18 16:52 97.9 F 63 13 160/94 H 100 Inital Vital Signs reviewed: Yes General: Well nourished, Well developed Head: Normocephalic ENT: Moist mucous membranes Cardiovascular: Regular rate, Regular rhythm Respiratory: No distress, CTA bilaterally Abdomen: Soft, Nontender, Hypoactive bowel sounds Extremities: Nontender Skin: Normal color, No rash Neurological: Alert, Oriented x3 Psychological: Normal affect Diagnostic/Tx/Re-eval Impressions Chest X-Ray 11/07/18 17:02 IMPRESSION: Normal x-ray examination of the chest. Electronically Signed: Kendell Benites DO at 17:45 EDT Tel , Service support , 11/07/18 17:02 Chest PA and Lateral [RAD] Stat Laboratory Results 11/07/18 11/07/18 17:10 17:10 WBC 6.3 RBC 4.73 Hgb 13.8 Hct 41.1 MCV 86.9 MCH 29.2 MCHC 33.6 RDW Std Deviation 40.6 RDW Coeff of Teofilo 12.8 Plt Count 296 MPV 10.3 Immature Gran % (Auto) 0.200 Neut % (Auto) 63.2 Lymph % (Auto) 25.0 [place] % (Auto) 8.6 Eos % (Auto) 2.5 Baso % (Auto) 0.5 Absolute Neuts (auto) 4.0 Absolute Lymphs (auto) 1.57 Nucleated RBC % 0 Sodium 142 Potassium 3.9 Chloride 114 H Carbon Dioxide 23.0 Anion Gap 5 BUN 8 Creatinine 0.65 Estim Creat Clear Calc 98.35 Est GFR (MDRD) Af Amer 128 Est GFR (MDRD) Non-Af 106 BUN/Creatinine Ratio 12.3 Glucose 91 Calcium 8.7 Troponin I < 0.015 - EKG Initial EKG Interpretation: Sinus Rhythm - Sinus at 60 with no acute ischemia. - Medical Decision Making Patient was given Tylenol for headache along with some Zofran. She was given a liter of IV fluids. On repeat evaluation she states her chest feels better. She still has headache and feels slightly dizzy. This is a combination of lack of sleep, sitting in the heat, and dehydration. Sugars okay on her blood work. Patient be given a dose of Antivert and discharged to home. She is to increase fluids of the next several hours. She is given a work note for tonight. ED Disposition - Plan for ED Patient: Disposition: Home or Assisted Living Diagnosis: Atypical chest pain, Cephalgia Instructions: CHEST PAIN, NonCardiac, DIZZINESS, Unk Cause Referrals: Salma Hough MD [Primary Care Provider] - 3-5 Days if not improving
[2018-11-07 17:17] LABS: Absolute Lymphocyte Count 1.57 X10^3/uL (0.83-4.51); Basophil# 0.03 X10^3/uL; Basophil% 0.5 % (0-1); Eosinophil# 0.16 X10^3/uL; Eosinophils% 2.5 % (0-5); Hematocrit 41.1 % (37-47); Hemoglobin 13.8 g/dL (12.0-15.0); Lymphocyte # 1.57 X10^3/ul (4.0); Mean Corp Hgb Conc 33.6 g/dL (32-36); Mean Corpuscular Hgb 29.2 pg (27.0-32.0); Mean Corpuscular Volume 86.9 fL (81-99); Mean Platelet Vol. 10.3 fl (6.2-12.0); Monocyte# 0.54 X10^3/uL; Monocyte% 8.6 % (0-10); NRBC Flagged by Analyzer 0 % (0-5); Neutrophil # 3.97 X10^3/uL (2.7-7.7); Neutrophil % 63.2 % (47-70); Platelet Count 296 K/mm3 (150-450); RBC Distribution Width CV 12.8 % (11.6-14.6); RBC Distribution Width SD 40.6 fl (35.1-43.9); Red Blood Count 4.73 M/mm3 (4.2-5.4); White Blood Count 6.3 K/mm3 (4.4-11.0)
[2018-11-07] MEDS: Ondansetron 4 MG/2 ML Vial IV (17:21)
[2018-11-07] MEDS: 0.9% Normal Saline 1,000 ML 1000 ML IV (17:21)
[2018-11-07] MEDS: Acetaminophen 325 MG Tablet 650 MG PO (17:22)
[2018-11-07 17:43] LABS: Anion Gap 5 (5-15); BUN 8 mg/dL (7-18); BUN/Creat Ratio 12.3 RATIO (10-20); Calcium,Total 8.7 mg/dL (8.5-10.1); Chloride 114 mmol/L (98-107); Creatinine, Serum 0.65 mg/dL (0.55-1.02); EST Glomerular Filtration Rate 106 mL/min (>60); Est Glom Filt Rate - Afr Amer 128 mL/min (>60); Estimated Creatinine Clearance 98.35 ml/min; Glucose 91 mg/dL (74-106); Potassium 3.9 mmol/L (3.5-5.1); Sodium Level 142 mmol/L (136-145)
[2018-11-07 17:51] VITALS: BP 162/88; PULSE 62; RESP 15; O2SAT 100
[2018-11-07 18:10] VITALS: BP 157/74; PULSE 80; RESP 16; O2SAT 100
[2018-11-07] MEDS: Meclizine HCl 25 MG Tablet PO (18:11)
[2018-11-07] MEDS: 0.9% Normal Saline 1,000 ML 150 ML IV (18:11)
== END 2018-11-07 18:18 | disposition home or self-care (01) ==
PROVIDERS: Emergency Provider Emergency Medicine; Family Provider Pediatrics; PCP Pediatrics
DX: R07.89 Other chest pain (principal); R51 Headache; Z87.891 Personal history of nicotine dependence
CPT/HCPCS: 71046; 80048; 84484; 85025; 93005; 96361; 96374; 99284; J7030; A4216; J2405

== ENCOUNTER 2020-11-14 17:06 | Emergency (ER) | payer BC, MEDICAID, SELFPAY ==
[2020-11-14 17:08] VITALS: BP 184/99; PULSE 73; RESP 18; TEMP 36.6; O2SAT 100; BMI 37.8
[2020-11-14 17:41] LABS: Absolute Lymphocyte Count 1.35 X10^3/uL (0.83-4.51); Absolute Neutrophil Count 5.7 X10^3/uL (2.0-7.7); Basophil# 0.04 X10^3/uL; Basophil% 0.5 % (0-1); Eosinophil# 0.18 X10^3/uL; Eosinophils% 2.3 % (0-5); Hematocrit 42.6 % (37-47); Hemoglobin 13.9 g/dL (12.0-15.0); Lymphocyte # 1.35 X10^3/ul (0.83-4.51); Lymphocyte % 17.4 % (19-41); Mean Corp Hgb Conc 32.6 g/dL (32-36); Mean Corpuscular Hgb 27.9 pg (27.0-32.0); Mean Corpuscular Volume 85.4 fL (81-99); Monocyte# 0.44 X10^3/uL; Monocyte% 5.7 % (0-10); NRBC Flagged by Analyzer 0 % (0-5); Neutrophil # 5.73 X10^3/uL (2.7-7.7); Neutrophil % 73.6 % (47-70); Platelet Count 405 K/mm3 (150-450); RBC Distribution Width CV 13.5 % (11.6-14.6); Red Blood Count 4.99 M/mm3 (4.2-5.4); White Blood Count 7.8 K/mm3 (4.4-11.0)
[2020-11-14 17:55] LABS: Anion Gap 8 (5-15); BUN 9 mg/dL (7-18); BUN/Creat Ratio 12.5 RATIO (10-20); Calcium,Total 9.1 mg/dL (8.5-10.1); Chloride 109 mmol/L (98-107); Creatinine, Serum 0.72 mg/dL (0.55-1.02); EST Glomerular Filtration Rate 93 mL/min (>60); Est Glom Filt Rate - Afr Amer 113 mL/min (>60); Glucose 100 mg/dL (74-106); Potassium 3.6 mmol/L (3.5-5.1); Sodium Level 141 mmol/L (136-145)
[2020-11-14 18:21] VITALS: BP 184/99; PULSE 73; RESP 18; TEMP 36.6; O2SAT 100
[2020-11-14 18:33] LABS: Bacteria 0 SEEN /hpf (None Seen); Mucous, Urine 0 SEEN /hpf (<or=2+); Red Blood Cells-Urine 0 SEEN /hpf (0-5); Squamous Epithelial Cells - UA 0 SEEN /hpf (5-10); White Blood Cells 0 SEEN /hpf (0-5)
[2020-11-14 18:34] LABS: Color, Urine Yellow (Yellow); Glucose, Dipstick Normal (Normal); Ketone-Dipstick Negative (Negative); Leukocyte Esterase-Dipstick Negative /ul (Negative); Nitrite-Dipstick Negative (Negative); Occult Blood-Urine Negative /ul (Negative); Protein-Dipstick 15 mg/dl (Negative); Specific Gravity, Urine 1.015 (1.002-1.030); Urine Bilirubin Dipstick Negative (Negative); Urine Clarity Clear (Clear); Urine Urobilinogen 1 mg/dl (Normal)
--- NOTE | 2020-11-14 18:35 | EX.ED.DYSGE1 ---
HPI History of Present Illness Chief Complaint: Flank Pain Detail of Chief Complaint: Right-sided flank pain that started 2 to 3 days ago Informant: patient Onset/Context/Timing Onset: Days Context: Sudden Onset Timing: Continuous Quality: Pain Location: Right flank Current Severity: Mild Maximum Severity: Moderate Worsened by: Nothing specific Relieved by: Nothing Associated Symptoms Associated Symptoms: Dysuria, frequency and urgency without hematuria Narrative Narrative: Patient is a 45-year-old woman who presents with atraumatic right flank pain that does not radiate. Associated with dysuria, frequency, urgency and no hematuria. She has no history of renal ureterolithiasis. She states she does not feel well. She complains of subjective fever. She denies chills. She reports nausea without vomiting or diarrhea. She has no respiratory symptoms. She is had no ill contacts. She denies rash. She denies history of pyelonephritis. Prior similar symptoms: No Recent Illness/H[facility]: [facility] Medical History Arthritis Migraine Home Medications NK 11/07/18 [History Last Taken Unknown] naproxen 500 mg PO BID #14 tab 11/14/20 [Rx Last Taken Unknown] Allergy/AdvReac Type Severity Reaction Status Date / Time No Known Allergies Allergy Verified 11/14/20 17:07 Social History (Updated 11/14/20 @ 18:[address] Candelario Roy MD) household members: significant other Smoking Status: Current some day smoker tobacco type: cigarettes alcohol intake: current alcohol intake frequency: other substance use type: does not use ROS ROS ED Constitutional Constitutional ED: Reports fever(s) and subjective; Denies chills, sweats or weight loss Eyes Eyes: Denies blurry vision or change in vision ENT ENT ED: Denies ear pain, rhinorrhea or sore throat Cardiovascular Cardiovascular: Denies chest pain or palpitations Respiratory/Chest Respiratory/Chest: Denies cough, dyspnea or dyspnea on exertion Gastrointestinal Gastrointestinal: Reports nausea; Denies abdominal pain, diarrhea or vomiting Genitourinary Genitourinary ED: Reports dysuria and urinary frequency; Denies hematuria Musculoskeletal Musculoskeletal: Reports back pain; Denies arthralgias, myalgias or neck pain Integumentary Denies rash Neurologic Neurologic: Reports weakness; Denies headache(s) or paresthesias Endocrine Endocrinology: Denies polydipsia or polyuria Allergic/Immunologic Allergic/Immunologic ED: Denies mouth swelling or urticaria EXAM Physical Exam Const Vital Signs: 11/14/20 17:08 11/14/20 18:21 11/14/20 19:24 Temperature 98 F 98 F 98.4 F Temperature Source Temporal Temporal Oral Pulse Rate 73 73 68 Respiratory Rate 18 18 18 Blood Pressure 184/99 H 184/99 H 198/84 H Blood Pressure Mean 127 127 122 Pulse Ox 100 100 98 Oxygen Delivery Method Room Air Room Air Room Air 11/14/20 20:48 Temperature Temperature Source Pulse Rate 62 Respiratory Rate 16 Blood Pressure 192/85 H Blood Pressure Mean 120 Pulse Ox 99 Oxygen Delivery Method Room Air Positive well nourished, well developed and obese General Appearance ED: well developed and other Patient appears ill but not toxic ; Negative for cyanotic or diaphoretic Nutritional Appearance: obese HEENT Reports moist mucous membranes HEENT Narrative: Head is atraumatic normocephalic ears are normal. Nares patent. Eyes PERRL and EOMs intact bilaterally General Eye ED: Negative for pale conjunctiva or scleral icterus Neck no lymphadenopathy, supple and no JVD Chest Wall inspection of chest normal and palpation of chest normal Resp normal respiratory effort and clear to auscultation bilaterally Cardio regular rate, regular rhythm, S1 normal heart sound, S2 normal heart sound and no murmurs GI normal to inspection, nondistended, normoactive bowel sounds and non-tender Palpation: soft Back/Spine General Back: CVA tenderness right Cervical Spine: Negative for cervical spine tenderness Thoracic Spine / Upper Back: Negative for thoracic spinal tenderness Extremity normal to inspection General Extremety ED: Negative for edema or tenderness General Extremity: Negative for edema Neuro oriented x3, CN's II-XII intact bilaterally and no sensory deficits noted Sensorium / Orientation: alert Motor Exam: strength 5/5 throughout Psych mental status grossly normal Skin no rashes or lesions noted and no wounds MDM MDM MDM Narrative Medical decision making narrative: Patient presents with urinary symptoms and flank pain. Suspect she has pyelonephritis. Appropriate labs were ordered including lactate to assess for endorgan dysfunction. Blood cultures were ordered and patient was started on Rocephin. In the differential includes obstructing stone. If there is evidence of blood or no evidence of infection will obtain CTA to assess for ureterolithiasis. With negative work-up patient was discharged with NSAID and informed that the cause of her pain is unknown. Lab Data Attestation: I reviewed the patient's lab results. Lab results narrative: Laboratory results are negative. Labs: Laboratory Results - last 24 hr 11/14/20 11/14/20 11/14/20 17:30 17:30 18:25 WBC 7.8 RBC 4.99 Hgb 13.9 Hct 42.6 MCV 85.4 MCH 27.9 MCHC 32.6 RDW Std Deviation 42.0 RDW Coeff of Teofilo 13.5 Plt Count 405 MPV 10.0 Immature Gran % (Auto) 0.500 Neut % (Auto) 73.6 H Lymph % (Auto) 17.4 L Carter % (Auto) 5.7 Eos % (Auto) 2.3 Baso % (Auto) 0.5 Absolute Neuts (auto) 5.7 Absolute Lymphs (auto) 1.35 Nucleated RBC % 0 Sodium 141 Potassium 3.6 Chloride 109 H Carbon Dioxide 24.0 Anion Gap 8 BUN 9 Creatinine 0.72 Estim Creat Clear Calc 86.10 Est GFR (MDRD) Af Amer 113 Est GFR (MDRD) Non-Af 93 BUN/Creatinine Ratio 12.5 Glucose 100 Lactic Acid Calcium 9.1 Urine Color Yellow Urine Clarity Clear Urine pH 7.0 Ur Specific [place] 1.015 Urine Protein 15 H Urine Glucose (UA) Normal Urine Ketones Negative Urine Occult Blood Negative Urine Nitrite Negative Urine Bilirubin Negative Urine Urobilinogen 1 H Ur Leukocyte Esterase Negative Urine RBC 0 SEEN Urine WBC 0 SEEN Ur Squamous Epith Cells 0 SEEN Urine Bacteria 0 SEEN Urine Mucus 0 SEEN 11/14/20 20:04 WBC RBC Hgb Hct MCV MCH MCHC RDW Std Deviation RDW Coeff of [place] Plt Count MPV Immature Gran % (Auto) Neut % (Auto) Lymph % (Auto) Carter % (Auto) Eos % (Auto) Baso % (Auto) Absolute Neuts (auto) Absolute Lymphs (auto) Nucleated RBC % Sodium Potassium Chloride Carbon Dioxide Anion Gap BUN Creatinine Estim Creat Clear Calc Est GFR (MDRD) Af Amer Est GFR (MDRD) Non-Af BUN/Creatinine Ratio Glucose Lactic Acid 1.0 Calcium Urine Color Urine Clarity Urine pH Ur Specific [place] Urine Protein Urine Glucose (UA) Urine Ketones Urine Occult Blood Urine Nitrite Urine Bilirubin Urine Urobilinogen Ur Leukocyte Esterase Urine RBC Urine WBC Ur Squamous Epith Cells Urine Bacteria Urine Mucus Radiography Diagnostic Testing: Radiology Impression Abdomen/Pelvis CT 11/14/20 19:36 IMPRESSION: No acute intra-abdominal process. Colonic diverticulosis. Degenerative changes of the visualized thoracic and lumbar spine. Electronically Signed: Ebony Munoz MD at 20:39 EDT Tel , Service support , Discharge Plan Triage Chief Complaint: Flank Pain Other Complaint: Abd Pain ED Provider: Candelario Roy Dx/Rx/DC Orders Clinical Impression: Acute right flank pain Instructions: ED Flank Pain, Uncertain Cause Prescriptions: New naproxen 500 MG tablet 500 mg PO BID Qty: 14 RF: 0 No Action NK RF: 0 Primary Care Provider: Salma Hough Referrals: Salma Hough MD [Primary Care Provider] - 3-5 Days if not improving Disposition Disposition: Home, Self Care
--- NOTE | 2020-11-14 19:08 | ED.RN ---
Addendum entered by Rajani Olivo 11/14/20 19:26: UNABLE TO HANG ANTIBIOTIC UNTIL BLOOD CULTURES ARE OBTAINED Original Note: THIS RN CALLED LAB TO OBTAIN BLOOD CULTURES X2 AND LACTIC.
[2020-11-14] MEDS: Ketorolac 15 MG/ML Vial IV (19:22)
[2020-11-14 19:24] VITALS: BP 198/84; PULSE 68; RESP 18; TEMP 36.9; O2SAT 98
--- NOTE | 2020-11-14 19:36 | CT_ITS ---
STUDY: CT ABDOMEN AND PELVIS WITHOUT CONTRAST REASON FOR EXAM: Female, 45 years old. Right flank pain for 3 days. Kidney Stone RADIATION DOSAGE (If Supplied By Facility): CTDIvol = ( 19.93 ) mGy, DLP = ( 980.91 ) mGycm TECHNIQUE: Transaxial images were obtained from the dome of the diaphragm to the symphysis pubis without oral contrast, and without intravenous contrast. Sagittal and coronal images were reconstructed. Individualized dose optimization techniques were used for this CT. COMPARISON: None. FINDINGS: The visualized lung bases are unremarkable. The visualized portions of the heart are within normal limits. The lack of intravenous contrast limits evaluation of solid visceral organs. Normal liver. There are surgical clips in the gallbladder fossa consistent with a prior cholecystectomy. Normal spleen. Normal pancreas. Normal bilateral adrenal glands. Normal right kidney. Normal left kidney. There are postsurgical changes of the stomach. Normal small intestine. There are scattered colonic diverticula consistent with diverticulosis. The appendix is visualized and appears normal. Normal abdominal aorta. Normal inferior vena cava. Normal retroperitoneum. Normal urinary bladder. There is a small fat-containing supraumbilical hernia. There are diffuse degenerative changes of the visualized thoracic and lumbar spine. CT/Abdomen/Pelvis without Cont IMPRESSION: No acute intra-abdominal process. Colonic diverticulosis. Degenerative changes of the visualized thoracic and lumbar spine. Electronically Signed: Ebony Munoz MD at 20:39 EDT Tel , Service support ,
[2020-11-14] MEDS: Ceftriaxone 1 GM/50 ML BAG IV (20:37)
[2020-11-14 20:48] VITALS: BP 192/85; PULSE 62; RESP 16; O2SAT 99
[2020-11-14 21:43] VITALS: BP 209/98; PULSE 90; RESP 15; O2SAT 99
--- NOTE | 2020-11-16 08:29 | ED.RN ---
PER DR BAER, NO CHANGE TO TREATMENT WITH 1ST SET OF BLOOD CULTURE RESULTS
== END 2020-11-14 21:44 | disposition home or self-care (01) ==
PROVIDERS: Emergency Provider Emergency Medicine; PCP Pediatrics
DX: R10.9 Unspecified abdominal pain (principal); K57.30 Diverticulosis of large intestine without perforation or abscess without bleeding; E66.9 Obesity, unspecified; F17.210 Nicotine dependence, cigarettes, uncomplicated
CPT/HCPCS: 36415; 74176; 80048; 81001; 83605; 85025; 87040; 87086; 87088; 87149; 96361; 96365; 96375; 99283; J7030; A4216